=== PATIENT | male | born 1955 | race Caucasian/White ===

== ENCOUNTER 2016-12-06 00:32 | Inpatient (IN) | payer BC ==
[~2016-12-06] VITALS: Ht 182.9 cm; Wt 217.0 kg
--- NOTE | ~2016-12-06 | CR252 ---
[facility] A Service of [facility] & [facility] RADIOLOGY TEXT RESULTS PATIENT: JONATAN GILES LOCATION: [address] : [birth year] UNIT #: [id number] AGE: [address]: Neida Palacios MD SEX: M ORDER DR: [id number] [facility] [address] [facility]. [place], [place] [address] [id number] I MR#: [id number] Acc #: [id number] NAME: JONATAN GILES. : 1955 SEX: M STUDY DATE/TIME: 12/06/2016 01:49 UNIT: [facility] ROOM: [facility] STUDY DESCRIPTION: CR Tibia and Fibula 2 Views Lt Attending Physician: Arabella Mathews M.D. Ordering Physician: Bryan Bella M.D. Primary Care Physician: Raquel Kwon M.D. MEDICAL IMAGING REPORT This report is preliminary unless electronic signature is present EXAM Left tib-fib 12/06 01:49 INDICATION Leg pain after fall 2 days ago. FINDINGS AP and lateral views of the lower leg were obtained. Patient is morbidly obese. There is tricompartmental osteoarthritis in the knee. No acute fracture or malalignment is identified. IMPRESSION Osteoarthritis in the knee. No acute fracture. Dictated by... Joseph Brandt Jr., M.D. THIS IS AN ELECTRONICALLY VERIFIED REPORT Joseph Brandt Jr., M.D. at 12/07/2016 12:52 AM ZACH/emily TD: 12/06/2016 08:18 JOB #: [id number] MEDICAL IMAGING REPORT Page 1 of 1 COPY
--- NOTE | ~2016-12-06 | DS ---
Unit #: [id number] #: [id number] Patient: JONATAN GILES [id number] [address] [place], [place] [address] [id number] I MR#: [id number] NAME: JONATAN GILES. ROOM: [facility] Age: 61 Sex: M Admission Date: 12/06/2016 : 1955 Discharge Date: 12/19/2016 Attending Physician: Kamala Coon M.D. Primary Care Physician: Raquel Kwon M.D. DISCHARGE SUMMARY ADDENDUM Please note this is an addendum to a previously dictated transfer of card note done by Dr. Palacios on 12/09/2016. ADDITIONAL DISCHARGE DIAGNOSES 1. Septic shock secondary to left thigh cellulitis, now resolved. Positive organism not identified. 2. Acute kidney injury with probable underlying diabetic nephropathy, plus/minus focal segmental glomerulosclerosis. Currently maintained on hemodialysis. 3. Acute on likely chronic hypercapnic hypoxic respiratory failure, currently maintained on 10 liters per Oxymizer with BiPAP at night. 4. Nonsustained ventricular tachycardia, now resolved. 5. Diabetes mellitus type 2, insulin requiring and uncontrolled, with hemoglobin A1c of 8.6. 6. Obstructive sleep apnea. 7. Obesity/hypoventilation syndrome. 8. Anemia of chronic kidney disease. 9. Diffuse tenia infection of the skin, status post treatment. 10. Depression. CONSULTANTS Dr. Walton, cardiology. Dr. Werner, Vascular surgery. PROCEDURES PERFORMED Placement of right IJ tunnelled hemodialysis catheter. This occurred without complication. DIAGNOSTIC DATA IMAGING: Multiple follow-up chest x-rays demonstrating dense atelectasis of the right base and a small to moderate sized right pleural effusion. CLINICAL HISTORY/HOSPITAL COURSE Since last dictation, the patient fortunately has made dramatic improvement. He has been off pressor therapy since soon after last dictation and blood pressure has remained stable. He did complete a one-week course of antibiotics for the cellulitis associated with his left lower extremity. Antibiotics were subsequently discontinued. He had a persistent leukocytosis, but without fever. Over the course of the last several days his leukocytosis has begun to spontaneously resolve and is felt to be reactive in nature. On day of discharge white blood cell count is still elevated at 15.3, but is trending down quickly. No obvious other Unit #: [id number] #: [id number] Patient: JONATAN GILES signs of infection and leukocytosis can be monitored. He did also complete a one-week course of Diflucan. In regard to the patient's acute kidney injury, the patient was maintained on daily hemodialysis for approximately six days beginning on December 09. He had significant loss of fluid weight and is now on intermittent hemodialysis, being monitored by nephrology. There is a clinical suspicion the patient's significant underlying nephrotic syndrome prior to presentation that be related to his underlying poorly controlled diabetes versus an FFGF etiology. At this point he will continue hemodialysis and continue to monitor for hopefully removal from dialysis in the future. His associated rhabdomyolysis has resolved. In regard to the patient's compartment syndrome, he is being followed by orthopedics, but wounds look good. There is no further compartment syndrome and no further plans for workup. Wounds continue to be followed closely. The patient also had significant hyperglycemia, but insulin has been adjusted and sugars are now running in the high 100s to low 200s and as intake improves will need further monitoring of insulin therapy. The patient did develop nonsustained ventricular tachycardia, for which cardiology was consulted. Clinically the suspicion is this is secondary to significant underlying obstructive sleep apnea. However, the patient does have significant risk factors for underlying coronary artery disease. However, he has never had an elevated troponin, nor has he had any other indications on EKG or telemetry of ischemia. Plan is for patient to heal from current illness and perhaps when more stable he does need heart cath for further evaluation. Of course, renal function should be discussed with nephrology. The patient was also suffering from severe depression with I suspect an associated hypoactive delirium. Delirium component has resolved. He was seen by Dr. Conway and placed on Zoloft and mood has been much improved subsequently. Patient underwent tunnelled hemodialysis catheter placement yesterday and is now clinically stable for transfer to [place] when a bed is available. DISCHARGE CONDITION Stable. DISCHARGE STATUS Plan to transfer to ICU at [place] when a bed is available. DISCHARGE MEDICATIONS 1. Oxygen at 10 liters per Oxymizer, to be titrated for sats greater than or equal to 90%. 2. Combivent nebulizer treatments, 3 ml q.4 h. p.r.n. shortness of breath. 3. Heparin 5000 units subcutaneously t.i.d. at 10 a.m., 6 p.m. and 2 a.m. 4. Zoloft 25 mg at bedtime. 5. Dulera 100/5 mcg 2 puffs b.i.d. 6. Metoprolol tartrate 25 mg b.i.d. 7. Procrit 10,000 units subcutaneously with hemodialysis per renal. 8. Novolin R 13 units subcutaneously t.i.d. with meals, with associated high-dose sliding scale. Unit #: [id number] #: [id number] Patient: JONATAN GILES 9. Levemir 48 units subcutaneously b.i.d. 10. Aspirin 81 mg p.o. daily. 11. Percocet 10/325 mg 1-2 tablets p.o. q.6 h. p.r.n. pain. 12. Dilaudid injections 0.5-1 mg IV q.3 h. p.r.n. pain. 13. Renvela 800 mg 2 tablets p.o. t.i.d. with meals. 14. Protonix 40 mg p.o. daily. DISCHARGE INSTRUCTIONS 1. The patient is on a heart healthy, constant carb diet. 2. He will continue Accu-Cheks a.c. and h.s. 3. He can increase his activity as tolerated under the care of physical therapy. 4. In regard to fasciotomy wounds, they are being painted with Betadine and changed with transparent dressing just once daily. There is a crusting technique to wound under the pannis with Adaptic powder and skin perp wipes q.72 h. and p.r.n. and covered with Mepilex. The patient also has a wound on the right posterior calf that is being cleaned with sock wound cleanser daily. 5. He is also wearing BiPAP at night. FOLLOWUP 1. The patient will be followed by nephrology at [place]. 2. Will need pulmonology evaluation as well. 3. Further followup pending progression at [place]. Time spent on discharge today 43 minutes. Dictated by... Kamala Coon M.D. Calos TD: 12/19/2016 10:17 JOB #: [id number] DISCHARGE SUMMARY Page 1 of 1 X Kamala Coon MD DISCHARGE SUMMARY
--- NOTE | ~2016-12-06 | TOC ---
Unit #: [id number] #: [id number] Patient: JONATAN GILES [id number] [address] [address] [id number] I MR#: [id number] NAME: JONATAN GILES ROOM: [facility] Age: 61 Sex: M Admission Date: 12/06/2016 : 1955 Attending Physician: Neida Palacios M.D. Primary Care Physician: Raquel Kwon M.D. TRANSFER OF CARE SUMMARY DISCHARGE DIAGNOSES 1. Septic shock, on Levophed. 2. Left leg and thigh compartment syndrome. 3. Sepsis. 4. Acute kidney injury and oliguria. Patient is on continuous renal replacement therapy, trying for hemodialysis. 5. Acute rhabdomyolysis. 6. Acute hypercapnic, hypoxic respiratory failure postoperatively, currently on ventilation. 7. Hypovolemic shock, received fluids. 8. Atrial fibrillation with rapid ventricular rate. 9. Chronic obstructive pulmonary disease. 10. Obstructive sleep apnea. 11. History of recurrent cellulitis of hip, back and buttocks. 12. History of Lap-Band placement. 13. Diabetes mellitus type 2, insulin dependent. Currently severe hypoglycemia, on D10. 14. Hyperlipidemia. 15. Hypertension history, currently hypotension, on Levophed. 16. Hyponatremia. 17. Hyperkalemia. 18. Hypocalcemia. 19. Severe protein malnutrition. 20. Lactic acidosis. 21. Morbid obesity. Body mass index of 67. CONSULTATIONS 1. Dr. Castano. 2. Dr. Cueva. PROCEDURES The patient had left lower leg four compartment release and left thigh anterior and posterior compartment release. DIAGNOSTIC TESTING CURRENT LAB DATA: Glucose 151 on D10. CK 6,180. Phosphorous 4, magnesium 2.2, sodium 133, potassium 5.5, creatinine 2.8, AST 264, ALT 163, albumin 1.6. WBC 11.7, hemoglobin 10.6, platelets 136. ABG - pH 7.35, carbon dioxide 51, oxygen 75. Procalcitonin is 152. HOSPITALIZATION COURSE A 61 year old admitted because of leg cellulitis. Septic shock with severe sepsis. Patient was seen by infectious disease. Unit #: [id number] #: [id number] Patient: JONATAN GILES The patient was started on broad-spectrum antibiotics. Currently the patient is on Zyvox and Meropenem. The patient is in ICU. The patient did have compartment release for his leg and thigh. Blood cultures are negative so far. Continue antibiotics as per infectious disease. Acute postop hypercapnic, hypoxic respiratory failure. Currently ventilation. Continue with vent management as per pulmonary. Acute kidney injury with oliguria with acute rhabdomyolysis. The patient received CRRT. Currently on CRRT. We will start hemodialysis if the patient tolerates. Severe hypotension. Likely from septic shock and also severe hypovolemic shock. The patient received fluids initially postoperatively. Currently is on Levophed. Atrial fibrillation. Currently rate controlled. Monitor closely. Severe electrolyte imbalance, treated by nephrology. Morbid obesity with severe protein malnutrition. Subscription Crew Leader to see. Critically ill patient. Monitor closely in the ICU. Dictated by... Huber Zhang/elida TD: 12/09/2016 14:47 JOB #: [id number] TRANSFER OF CARE SUMMARY Page 1 of 1 X Neida Palacios MD TRANSFER OF CARE SUMMARY
--- NOTE | ~2016-12-06 | EKG ---
PATIENT: JONATAN GILES UNIT #: [id number] Ventricular Rate: 76 BPM Atrial Rate: 76 BPM P-R Interval: 134 ms QRS Duration: 102 ms Q-T Interval: 348 ms QTC Calculation(Bezet): 391 ms P Huron: 45 degrees Calculated R Huron: 56 degrees Calculated T Huron: -135 degrees Diagnosis Line: Normal sinus rhythm Diagnosis Line: Nonspecific T wave abnormality Diagnosis Line: Abnormal ECG Diagnosis Line: When compared with ECG of 13-DEC-2016 17:01, Diagnosis Line: No significant change was found Diagnosis Line: Confirmed by FLORENCIA HERNÁNDEZ MD ([id number]) on Diagnosis Line: 12/17/2016 4:48:13 PM INTERPRETING MD: ELIZABETH
--- NOTE | ~2016-12-06 | CR72 ---
[facility] A Service of [facility] & [facility] RADIOLOGY TEXT RESULTS PATIENT: JONATAN GILES LOCATION: [address] : [birth year] UNIT #: [id number] AGE: [address]: Neida Palacios MD SEX: M ORDER DR: [id number] [facility] [address] [facility]. [place], [place] [address] [id number] I MR#: [id number] Acc #: [id number] NAME: JONATAN GILES. : 1955 SEX: M STUDY DATE/TIME: 12/06/2016 19:04 UNIT: [facility] ROOM: [facility] STUDY DESCRIPTION: CR Chest Single View Portable Attending Physician: Neida Palacios M.D. Ordering Physician: Neida Palacios M.D. Primary Care Physician: Raquel Kwon M.D. MEDICAL IMAGING REPORT This report is preliminary unless electronic signature is present EXAM Portable chest. HISTORY Shiley catheter placement today. Shortness of air. FINDINGS Right IJ dual-lumen catheter positioned with its tip at the junction of the SVC and right atrium. No pneumothorax. Dense right basilar consolidation or atelectasis is similar to earlier today and there is a persistent small right pleural effusion. New or increased mild patchy infiltrate or atelectasis in the left base. ETT tip is approximately 8 cm above the jovanny. Dictated by... Dawson Meadows M.D. THIS IS AN ELECTRONICALLY VERIFIED REPORT Dawson Meadows M.D. at 12/07/2016 4:08 PM DFL/gz TD: 12/07/2016 08:31 JOB #: [id number] MEDICAL IMAGING REPORT Page 1 of 1 COPY
--- NOTE | ~2016-12-06 | HP ---
Unit #: [id number] #: [id number] Patient: JONATAN GILES [id number] [address] [place], [place] [address] [id number] I MR#: [id number] NAME: JONATAN GILES. ROOM: [facility] Age: 61 Sex: M Admission Date: 12/06/2016 : 1955 Attending Physician: Neida Palacios M.D. Primary Care Physician: Raquel Kwon M.D. HISTORY AND PHYSICAL CHIEF COMPLAINT Rhabdomyolysis, left leg cellulitis, acute kidney injury. HISTORY This 61-year-old male with hypertension, AODM, obstructive sleep apnea, COPD, morbid obesity, is admitted for rhabdomyolysis. Around 3 p.m. yesterday, the patient was unable to get off the commode for about five hours. He ended up falling to the floor, and EMS was called. He was brought to this emergency department at or about 12:30 this morning where he was quite dyspneic. On examination, he has significant erythema and swelling of the left lower extremity with quite a bit of pain in the left leg. Labs are notable for rhabdomyolysis and acute kidney injury. The patient's O2 sats were on the lower side requiring 4 L of oxygen. He denies chest pain with the above but does admit to feeling more short of breath. D-dimer was also elevated. In the ER, he was given Dilaudid, 125 mg of Solu-Medrol, aspirin, 2 L of saline, 200 mg of Lovenox, vancomycin. He continues to have quite a bit of left leg pain. PAST MEDICAL HISTORY 1. Admission 05/2016 for left hip cellulitis requiring Zyvox. 2. Essential hypertension. 3. Hyperlipidemia. 4. Paroxysmal atrial fibrillation. 5. Insulin dependent diabetes mellitus x15 years. 6. Obstructive sleep apnea. 7. COPD. 8. BPH. 9. Recurrent cellulitis of the hips, back and buttocks. 10. Lap band placement. 11. Chest tube placement. ALLERGIES Penicillin. MEDICATIONS Home medications from the best I can determine include: 1. ProAir q.4 hours as needed. 2. Metformin 500 mg b.i.d. 3. Dulera 100/5 mcg, two puffs b.i.d. 4. Norvasc 5 mg daily. 5. Ditropan XL 15 mg daily. 6. Lipitor 40 mg daily. 7. Hydralazine 25 mg t.i.d. 8. Lisinopril 20 mg b.i.d. Unit #: [id number] #: [id number] Patient: JONATAN GILES 9. Apidra 35 units subcu t.i.d. with meals. 10. Levemir or Lantus 45 units subcu b.i.d. 11. Singulair 10 mg daily. 12. Aspirin 81 mg daily. 13. Daliresp 500 mg daily. FAMILY HISTORY Negative for CAD. SOCIAL HISTORY The patient works at [employer]. He stopped smoking about three to four years ago. Does not drink alcohol. REVIEW OF SYSTEMS Notable for left leg pain, hypertension, hyperlipidemia, atrial fibrillation, diabetes, obstructive sleep apnea, COPD, BPH, above mentioned surgeries, quite a bit of left leg pain, shortness of breath. All other systems were reviewed and are otherwise negative. PHYSICAL EXAMINATION GENERAL: Pleasant, uncomfortable appearing 61-year-old morbidly obese male who is dyspneic. VITAL SIGNS: Temperature 97.9, pulse 120, respirations 27, blood pressure 121/98. O2 saturation currently is about 94% on 4 L of oxygen. HEENT: Eyes PERRLA. Extraocular muscles are intact. Pharynx is benign. NECK: Supple without adenopathy or thyromegaly. CHEST: Clear. CARDIAC: Tachy S1 and S2 without murmur. ABDOMEN: Bowel sounds are present. No hepatosplenomegaly, tenderness or masses. EXTREMITIES: Notable for chronic venous stasis of the lower extremities. However, left leg is much more red, hot and swollen distally than the right leg. There is also bruising left lateral upper thigh. Pedal pulses are present. No ulcers on the feet. NEUROLOGIC EXAM: The patient is awake, alert, oriented. His cranial nerves are intact. He has equal strength throughout. DIAGNOSTIC STUDIES LABORATORY: Admission labs - hematocrit is 49. Normal white count and platelet count. SMA-12 - glucose is 209, BUN 27, creatinine 2.9, up from a BUN of 19 and creatinine of 1.2 in May. Potassium is 5.2, calcium 8.2, albumin is 1.9. CPK is 25,000, troponin 0.16, BNP is 171. Initial lactic acid 4.1. ABG - pH 7.37, pCO2 34, pO2 93, O2 saturation 96% on 4 L of oxygen. IMAGING: X-ray of the LS spine negative. Chest x-ray - stable cardiomegaly. Mild vascular congestion. X-rays of the femur - DJD but limited study. X-rays of the tib/fib - DJD of the knee. CARDIOVASCULAR: EKG - I believe this is sinus tachycardia, rate 117, Unit #: [id number] #: [id number] Patient: JONATAN GILES nonspecific ST wave flattening. ASSESSMENT 1. Rhabdomyolysis. Patient was unable to get off the commode for about five hours and then fell. 2. Left leg cellulitis. Rule out DVT, rule out compartment syndrome. 3. AODM. 4. COPD with increasing shortness of breath. 5. Paroxysmal atrial fibrillation. I believe patient currently is in a sinus tachycardia. 6. BPH. 7. Obstructive sleep apnea. 8. COPD with increasing shortness of breath. 9. Sepsis. 10. Penicillin allergy. 11. Morbid obesity. PLANS 1. Zyvox and meropenem. 2. Orthopedic surgeon to check left leg. 3. Aggressive IV fluids with bicarb and ask nephrology to follow. Will ask for a urinalysis. 4. Pulmonary consultation. Patient sees Taylor Buenrostro, nurse practitioner. 5. Repeat all labs in a few hours including lactic acid levels and repeat CPK along with cardiac enzymes. 6. The patient received 200 mg of Lovenox in the ER. If he needs further anticoagulation, will start a heparin drip in 24 hours. 7. Venous Dopplers of the legs to rule out DVT. 8. The patient received Solu-Medrol but I will hold further Solu-Medrol at this point. Critical care time spent in evaluating this patient was 40 minutes. Dictated by Huber Patricio/wilmer TD: 12/06/2016 05:42 JOB #: [id number] HISTORY AND PHYSICAL Page 1 of 1 X Arabella Mathews MD X HISTORY AND PHYSICAL
--- NOTE | ~2016-12-06 | CR181 ---
[facility] A Service of [facility] & [facility] RADIOLOGY TEXT RESULTS PATIENT: JONATAN GILES LOCATION: [address] : [birth year] UNIT #: [id number] AGE: [address]: Neida Palacios MD SEX: M ORDER DR: [id number] [facility] [address] [facility]. [place], [place] [address] [id number] I MR#: [id number] Acc #: [id number] NAME: JONATAN GILES. : 1955 SEX: M STUDY DATE/TIME: 12/06/2016 02:49 UNIT: [facility] ROOM: [facility] STUDY DESCRIPTION: CR Lumbar Spine 2 or 3 Views Attending Physician: Neida Palacios M.D. Ordering Physician: Bryan Bella M.D. Primary Care Physician: Raquel Kwon M.D. MEDICAL IMAGING REPORT This report is preliminary unless electronic signature is present EXAM Lumbar spine 12/06 at 02:49 INDICATION Low back pain after a fall 2 days ago. Left leg pain. FINDINGS Three views of the lumbar spine were obtained. The exam is markedly degraded due to the patient's morbid obesity. No gross compression fractures are seen. Alignment is normal. There is multilevel degenerative disc disease. IMPRESSION Exam degraded by patient obesity. No definite compression fracture is seen and there is no malalignment. Dictated by... Joseph Brandt Jr., M.D. THIS IS AN ELECTRONICALLY VERIFIED REPORT Joseph Brandt Jr., M.D. at 12/07/2016 12:52 AM ZACH/emily TD: 12/06/2016 08:54 JOB #: [id number] MEDICAL IMAGING REPORT Page 1 of 1 COPY
--- NOTE | ~2016-12-06 | BMI ---
[facility] Nutrition Therapy DATE: 12/06/16 Patient: JONATAN GILES Physician: ADENIKE Address: [address] Room/Bed: [address], Zip: [place] [address] Admit Date: 12/06/16 Date of : [birth year] Height: 6 0 Weight: HIGH BMI NOTE: DX: 61 y/o male admitted with SOA, down x 4 hours after toilet broke underneath him Patient was discussed during ICU rounds ANTHROPOMETRICS: HT: 72", Wt: 226.7 kg, BMI: 67 (stage III obese) DIET: NPO for possible surgery INTERVENTION: Restricted diet once appropriate, meds/fluids per MD RECOMMENDATIONS: 1. Once medically feasible advance oral diet to healthy heart/60g carb as tolerated due to PMH and to promote a gradual weight loss towards a healthy BMI range. 2. Wound care prn. 3. If unable to extubated patient within 48 hours of surgery please consult RD for enteral nutrition recommendations. Respectfully, Che Macario RD, LD Food and Nutritional Services [facility] cc: client file
--- NOTE | ~2016-12-06 | CR20 ---
[facility] A Service of [facility] & [facility] RADIOLOGY TEXT RESULTS PATIENT: JONATAN GILES LOCATION: [address] : [birth year] UNIT #: [id number] AGE: [address]: Neida Palacios MD SEX: M ORDER DR: [id number] [place] [address] [facility]. [place], [place] [address] [id number] I MR#: [id number] Acc #: [id number] NAME: JONATAN GILES. : 1955 SEX: M STUDY DATE/TIME: 12/07/2016 9:34 UNIT: [facility] ROOM: [facility] STUDY DESCRIPTION: CR Ankle Min 3 Views Lt Attending Physician: Neida Palacios M.D. Ordering Physician: Neida Palacios M.D. Primary Care Physician: Raquel wKon M.D. MEDICAL IMAGING REPORT This report is preliminary unless electronic signature is present EXAM Left ankle, 3 views. HISTORY Foot and ankle pain for 2 days. No injury. FINDINGS Three views left ankle demonstrate satisfactory ankle alignment. No fracture or joint space narrowing. Soft tissue swelling about the ankle. Normal mineralization. IMPRESSION 1. Satisfactory ankle alignment. No acute findings. 2. Soft tissue swelling about the ankle. Dictated by... Dawson Meadows M.D. THIS IS AN ELECTRONICALLY VERIFIED REPORT Dawson Meadows M.D. at 12/07/2016 10:31 PM KAYLAN/rene TD: 12/07/2016 20:20 JOB #: [id number] MEDICAL IMAGING REPORT Page 1 of 1 COPY
--- NOTE | ~2016-12-06 | CO ---
Unit #: [id number] #: [id number] Patient: JONATAN GILES [id number] [place], [place] [address] [id number] I MR#: [id number] NAME: JONATAN GILES. ROOM: [facility] Age: 61 Sex: M Admission Date: 12/06/2016 : 1955 Attending Physician: Kamala Coon M.D. Primary Care Physician: Raquel Kwon M.D. Consultation Date: 12/13/2016 CONSULTATION REPORT REASON FOR CONSULTATION Ventricular tachycardia. HISTORY OF PRESENT ILLNESS This is a 61-year-old white male who was admitted with left lower extremity cellulitis and rhabdomyolysis. The patient was unable to get off the commode at home and fell to the floor where he apparently laid for a period of time. He was found to have left lower extremity compartment syndrome and underwent release. He had severe sepsis, respiratory failure, and acute kidney injury. He was subsequently intubated. He was on vasoactive pressors for hypotension. He was eventually weaned off the ventilator and off pressors. His blood pressure is currently stable. Because of acute kidney injury, he was started on hemodialysis. There was elevation of troponin that peaked at 0.21 but no acute electrocardiogram changes. During the course of his stay, the patient had an 18-beat run of (1) nonsustained ventricular tachycardia. His potassium this a.m. was 5.8 prior to hemodialysis. The patient was unaware of palpitations and reported no episodes of chest pain. He has no current shortness of breath. The patient was seen by our group in May of this year for a possible arrhythmia. He was noted to have frequent premature atrial complexes and questionable atrial fibrillation. He was to have an outpatient 24-hour Holter monitor but was not done. PAST MEDICAL HISTORY 1. A 2D echocardiogram, May 31, 2016, shows an ejection fraction equal to 50%. It was difficult study. Aortic and tricuspid valves were not well visualized. 2. Atrial arrhythmia. 3. Hypertension. 4. Hyperlipidemia. 5. Diabetes mellitus type 2. 6. Obstructive sleep apnea. 7. Chronic kidney disease stage 3. 8. COPD. 9. Morbid obesity. 10. Former smoker. PAST SURGICAL HISTORY 1. Recent left lower extremity compartment syndrome release. 2. Lap Band surgery. SOCIAL HISTORY The patient lives with his brother and uncle. Quit smoking approximately four years ago. There is no illicit drug or alcohol use. He has a Unit #: [id number] #: [id number] Patient: JONATAN GILES sedentary lifestyle and works for [employer]. FAMILY HISTORY Negative for coronary artery disease. ALLERGIES Penicillin. HOME MEDICATIONS 1. Lantus 70 units subcutaneous b.i.d. 2. Singulair 10 mg daily. 3. Aspirin 81 mg daily. 4. Norvasc 5 mg daily. 5. Ditropan 15 mg daily. 6. Lipitor 40 mg daily. 7. Hydralazine 25 mg t.i.d. 8. Lisinopril 20 mg b.i.d. 9. Apidra 35 units subcutaneous daily. 10. ProAir HFA two puffs q.4 hours. 11. Zyvox 600 mg b.i.d. 12. Metformin 1000 mg b.i.d. 13. Diflucan 100 mg daily. 14. Nilstat 10 mL t.i.d. 15. Dulera two puffs b.i.d. 16. Daliresp 500 mcg daily. REVIEW OF SYSTEMS Negative for fever or chills. Has no chest pain. Unaware of palpitations. Denies paroxysmal nocturnal dyspnea or orthopnea. NO syncope or near syncope. RESPIRATORY: Positive for dyspnea. No cough or hemoptysis. GASTROINTESTINAL: No abdominal pain, nausea, vomiting. EXTREMITIES: Positive for lower extremity pain with swelling and redness. PHYSICAL EXAMINATION VITAL SIGNS: Blood pressure 129/66, heart rate 89, temperature 97.4, BMI 67. GENERAL: This is a morbidly obese 61-year-old pleasant white male who is in no acute distress. NEUROLOGIC: He is awake, alert, and oriented. NECK: Trachea is midline. No thyromegaly or lymphadenopathy. No jugular venous distention. HEART: S1, S2 heart sounds are normal. No murmurs, rubs, or clicks. Regular rate and rhythm. LUNGS: Diminished both lungs without rales, rhonchi, wheeze. ABDOMEN: Obese, soft with bowel sounds present. EXTREMITIES: With left lower extremity wrapped. Right lower extremity with trace edema. SKIN: Pale and dry. DIAGNOSTIC STUDIES LABORATORY: Hemoglobin 10.9, hematocrit 32.9, platelet count 241,000, white count 27.9. Sodium 134, potassium 5.8, BUN 51, creatinine 4.3, glucose 338. Magnesium 2.5. AST 85, ALT 155. IMAGING: Chest x-ray shows cardiomegaly with questionable mild vascular congestion. There is a right effusion with compressed atelectasis. Unit #: [id number] #: [id number] Patient: JONATAN GILES CARDIOVASCULAR: Electrocardiogram shows normal sinus rhythm with rate of 89 beats per minute with no acute ischemic changes. IMPRESSION 1. Rhabdomyolysis. 2. Acute kidney injury requiring hemodialysis, questionable nephrotic syndrome. 3. Nonsustained ventricular tachycardia of 18 beats. 4. Questionable paroxysmal atrial fibrillation. 5. Hypotension, resolved. 6. Compartment syndrome, status post release. 7. Elevated troponin peak at 0.21, nondiagnostic for an acute myocardial infarction. 8. Morbid obesity. 9. Hyperkalemia. 10. Elevated liver function tests. PLAN 1. Cardiology was consulted for ventricular tachycardia: The patient was unaware of palpitations. Electrocardiogram is normal. He had normal left ventricular systolic function on previous echocardiogram in May 2016. Will start the patient on beta david for heart rate control. 2. Potassium was elevated prior to hemodialysis today. Will await repeat laboratory values. 3. Elevated liver function tests is probably related to hepatic congestion and not intrinsic hepatic disease, that is anoxic insult. Will avoid amiodarone for now. 4. Elevated troponin is most likely due to chronic kidney disease and supply/demand mismatch. Will continue to trend. 5. Obtain TSH and evaluate. 6. Will need further evaluation for possible ischemic heart disease. 7. Will follow the patient with you. Thank you for allowing us to assist in this patient's care. Dictated by... Fco Jarrell A.P.R.N. for Huber Fuller/indiana TD: 12/15/2016 16:10 JOB #: [id number] CONSULTATION REPORT Page 1 of 1 X Fco Jarrell APRN CONSULTATION REPORT
--- NOTE | ~2016-12-06 | CR71 ---
[facility]. [facility] A Service of [facility] & [facility] RADIOLOGY TEXT RESULTS PATIENT: JONATAN GILES LOCATION: [address] : [birth year] UNIT #: [id number] AGE: [address]: Neida Palacios MD SEX: M ORDER DR: [id number] [facility] [address] [facility]. [place], [place] [address] [id number] I MR#: [id number] Acc #: [id number] NAME: JONATAN GILES : 1955 SEX: M STUDY DATE/TIME: 12/09/2016 4:19 UNIT: [facility] ROOM: [facility] STUDY DESCRIPTION: CR Chest Single View Attending Physician: Neida Palacios M.D. Ordering Physician: Madeline Mills M.D. Primary Care Physician: Raquel Kwon M.D. MEDICAL IMAGING REPORT This report is preliminary unless electronic signature is present EXAM Portable chest, 12/09 COMPARISON 12/08 HISTORY Shortness of air. Rhabdomyolysis. Left leg cellulitis for 3 landeros. Status post compartment release of left calf. FINDINGS Today's portable view of the chest again shows marked cardiomegaly with right base atelectasis. There has been no change. The central venous catheter has its tip in the superior vena cava. The endotracheal tube is in good position. Dictated by... Navdeep Guillaume M.D. THIS IS AN ELECTRONICALLY VERIFIED REPORT Navdeep Guillaume M.D. at 12/09/2016 12:12 PM Mati TD: 12/09/2016 10:25 JOB #: [id number] MEDICAL IMAGING REPORT Page 1 of 1 COPY
--- NOTE | ~2016-12-06 | OR ---
Unit #: [id number] #: [id number] Patient: JONATAN GILES [id number] [address] [place], [place] [address] [id number] I MR#: [id number] NAME: JONATAN GILES. ROOM: [facility] Date of Procedure: 12/06/2016 Admission Date: 12/06/2016 Surgeon: Ale Castano M.D. : 1955 Attending Physician: Neida Palacios M.D. Primary Care Physician: Raquel Kwon M.D. OPERATIVE REPORT PREOPERATIVE DIAGNOSES 1. Left lower leg compartment syndrome. 2. Left thigh compartment syndrome. POSTOPERATIVE DIAGNOSES 1. Left lower leg compartment syndrome. 2. Left thigh compartment syndrome. PROCEDURES PERFORMED 1. Left lower leg four-compartment release (14421). 2. Left thigh anterior and posterior compartment release (24055). ASSISTANTS Brandie and Celia. ANESTHESIA General. INDICATIONS FOR SURGERY This 61-year-old morbidly obese male fell this morning at home and was trapped on the floor for about 4 hours. He is admitted with swelling and pain in the left leg. He complains of inability to move his toes or move his ankle on the left foot. He has significant swelling of the left calf and left thigh. He has significant tenderness on palpation of the left calf and left thigh. Pulses are intact. The patient has an elevated CPK of 24,000 and has an elevated creatinine. He is thought to be in rhabdomyolysis secondary to possible compartment syndrome. He will therefore undergo compartment release of his swollen left calf and left thigh. DESCRIPTION OF PROCEDURE The patient was taken to the operating room and placed in supine position and general endotracheal anesthesia was induced. The left leg was then prepped and draped in the usual sterile fashion. A 15 cm lateral longitudinal incision was made over the calf. Subcutaneous tissue was carefully divided. There was a copious amount of fluid (lymph fluid) in the subcutaneous tissue. The intermuscular septum was identified. The subcutaneous tissue was undermined and the anterior compartment was fully released from proximal to distal with Metzenbaum scissors. In a similar fashion, the lateral compartment was identified and released along the entire length of the lower extremity. Care was taken to avoid injury to the superficial peroneal nerve. Unit #: [id number] #: [id number] Patient: JONATAN GILES A 10 cm medial longitudinal incision was then made over the mid tibia and calf. The subcutaneous tissue was carefully divided. The deep muscle fascia was opened just posterior to the border of the tibia and deep muscle fascia was opened from proximal to distal. The superficial compartment was also opened with the same fasciotomy. A Castillo elevator was then used to release the soleus bridge from the posterior aspect of the tibia. It should be noted that the muscles in all four compartments of the lower leg appeared to be viable, pink, and contractile. A 15 cm lateral longitudinal incision was then made over the thigh. Subcutaneous tissue was divided. The iliotibial band was opened and there appeared to be swelling of the quadriceps muscle. The iliotibial band was released proximally and distally and the quadriceps muscle appeared to be viable. The deep muscle fascia in the posterior compartment of the thigh was then released through the same incision from proximal to distal and again the hamstring muscles appeared to be viable. All wounds were irrigated. Because the skin could easily be closed, we elected to proceed with closure of the skin with 2-0 nylon using multiple [id number] interrupted sutures. Xeroform gauze, dressing, sponges, Webril, and Raulito wraps were applied. The patient was then transported to the recovery room in stable condition. ESTIMATED BLOOD LOSS 50 mL. COMPLICATIONS None. SPECIMENS None. TOURNIQUET TIME Zero. Dictated byHuber Cotton/live TD: 12/06/2016 19:15 JOB #: [id number] OPERATIVE REPORT Page 1 of 1 X Roman Castano MD X PROCEDURE OPERATIVE NOTE
--- NOTE | ~2016-12-06 | CO ---
Unit #: [id number] #: [id number] Patient: JONATAN GILES [id number] [address] [address] [id number] I MR#: [id number] NAME: JONATAN GILES. ROOM: [facility] Age: 61 Sex: M Admission Date: 12/06/2016 : 1955 Attending Physician: Neida Palacios M.D. Primary Care Physician: Raquel Kwon M.D. Consultation Date: 12/06/2016 CONSULTATION REPORT CHIEF COMPLAINT Left leg pain and swelling. HISTORY OF PRESENT ILLNESS The patient is a 61-year-old morbidly obese male who fell off a toilet this morning and got trapped on the floor, laying on his chest. He is not sure what position his left leg was positioned. However, he now has significant left leg swelling and pain with numbness and paralysis. The patient is admitted to the intensive care unit with an elevated CPK of 24,000 and suspected rhabdomyolysis. He has an elevated creatinine of 2.9. His normal baseline is 1.3. Orthopedic consultation is requested to rule out compartment syndrome. PAST MEDICAL HISTORY 1. Insulin dependent diabetes. 2. Morbid obesity. 3. Hypertension. 4. Hyperlipidemia. 5. Obstructive sleep apnea. 6. Chronic obstructive pulmonary disease. 7. Benign prostatic hypertrophy. PAST SURGICAL HISTORY 1. Lap band surgery 2006. 2. Chest tube placement. SOCIAL HISTORY The patient is a former smoker. He denies alcohol or illicit drug use. HOME MEDICATIONS 1. Singulair. 2. Aspirin. 3. Daliresp. 4. Ditropan. 5. Lisinopril. 6. Hydralazine. 7. Norvasc. 8. Lipitor. 9. Metformin. 10. ProAir. 11. Insulin. 12. Apidra. 13. Dulera. Unit #: [id number] #: [id number] Patient: JONATAN GILES REVIEW OF SYSTEMS Remarkable for left leg pain and numbness. PHYSICAL EXAMINATION GENERAL: In general, this is a morbidly obese male in excess of 500 pounds. He is alert, oriented and cooperative. He is unable to move his left leg. He is unable to dorsiflex or plantar flex his left ankle. He is unable to dorsiflex or plantar flex his toes on the left foot. Sensation is decreased to light touch on the dorsal aspect of his left foot and the plantar aspect of this foot. He does have intact sensation on his calf anteriorly and posteriorly, as well as on his thigh. He has point tenderness of the left calf anteriorly and posteriorly as well as in the thigh anteriorly and posteriorly. The patient has venous stasis changes of the skin of both calves. Dorsalis pedis and posterior tibial pulses are present with Doppler. DIAGNOSTIC STUDIES IMAGING: AP and lateral radiographs of his left femur and left tibia are normal. AP and lateral lumbar spine show no evidence of fracture. He does have evidence of medial compartment knee arthritis. LABORATORY: Hemoglobin 15.7, hematocrit 49, white blood cell count 6.5 with 88% polys. INR 1.2. Lactate 4.1, CPK 24,682. Chem. 7 shows an elevated potassium of 5.2 with a BUN of 27 and creatinine of 2.9. ASSESSMENT 1. Left thigh and calf compartment syndrome. 2. Morbid obesity. 3. Rhabdomyolysis. PLAN The patient requires emergent left calf and left thigh fasciotomies. This procedure was described to the patient, along with the risks of bleeding, infection, nerve damage, permanent paralysis and numbness, need for further surgery for either closure of the skin or skin grafting. The patient understands the above risks and agrees to proceed with the treatment plan. Will proceed as soon as the patient is cleared for surgery. Dictated by..Huber Roque/natalie TD: 12/06/2016 10:33 JOB #: [id number] CC: Ale Castano M.D. Unit #: [id number] #: [id number] Patient: JONATAN GILES CONSULTATION REPORT Page 1 of 1 X Roman Castano MD X CONSULTATION REPORT
--- NOTE | ~2016-12-06 | CO ---
Unit #: [id number] #: [id number] Patient: ANDREW GILES [id number] [place] [address] [facility]. [place], [place] [address] [id number] I MR#: [id number] NAME: ANDREW GILES. ROOM: [facility] Age: 61 Sex: M Admission Date: 12/06/2016 : 1955 Attending Physician: Kamala Coon M.D. Primary Care Physician: Raquel Kwon M.D. Consultation Date: 12/19/2016 CONSULTATION REPORT REASON FOR CONSULTATION Followup. DISCUSSION Mr. Andrew Giles is a 61-year-old white male, seen in CCU-3, bed 24 on 12/19/2016 at [facility]. The patient was pleasant, cooperative, morbidly obese, dressed casually in hospital attire. The patient reports mood is better. The patient is tolerating medication fairly well and physically feeling much better. The patient's vital signs; temperature 98.4, pulse 69, respirations 16, blood pressure 142/68, and oxygen saturation 99%. The patient reported that he had a surgery this morning, created fistula for the patient to have for dialysis. The patient denied any other complaints. Denied any thoughts of harming self or others. REVIEW OF SYSTEMS Complete review of systems unremarkable. MENTAL STATUS EXAMINATION General appearance, the patient dressed casually. Attention span and concentration, fair. Oriented in time, place, and person. Mood and affect; sad and dysphoric, but able to smile. Thought process, coherent. Thought content, denied any thoughts of harming self or others or any hallucination. Recent and remote memory, fair. Language, intact. Fund of knowledge, fair. Insight and judgment, fair to slightly impaired. DIAGNOSIS Major depressive disorder, recurrent, severe, F33.2. ASSESSMENT/PLAN 1. Supportive psychotherapy and psychoeducation provided to the patient. 2. Educated about benefits and side effects of medication and course and prognosis of illness. 3. Advised to increase Zoloft to 50 mg daily. If needed, consider further adjustment of medication. Please feel free to call if any questions, telephone #[phone]. Dictated by... Bony Conway M.D. ISAK/live SUAREZ: 12/20/2016 18:24 Unit #: [id number] #: [id number] Patient: ANDREW GILES TD: 12/20/2016 19:36 JOB #: [id number] CONSULTATION REPORT Page 1 of 1 X Bony Conway MD X CONSULTATION REPORT
--- NOTE | ~2016-12-06 | CR72 ---
[facility] A Service of [facility] & [facility] RADIOLOGY TEXT RESULTS PATIENT: JONATAN GILES LOCATION: [address] : [birth year] UNIT #: [id number] AGE: [address]: Kamala Coon MD SEX: M ORDER DR: [id number] [facility] [address] [place], [place] [address] [id number] I MR#: [id number] #: [id number] NAME: JONATAN GILES. : 1955 SEX: M STUDY DATE/TIME: 12/18/2016 4:22 UNIT: [facility] ROOM: [facility] STUDY DESCRIPTION: CR Chest Single View Portable Attending Physician: Kamala Coon M.D. Ordering Physician: Madeline Mills M.D. Primary Care Physician: Raquel Kwon M.D. MEDICAL IMAGING REPORT This report is preliminary unless electronic signature is present EXAM Portable chest HISTORY Shortness of air for 12 days. FINDINGS Small to moderate-sized right pleural effusion has decreased since 12/14/2016. Consolidation or atelectasis in the right base persists. Cardiac and mediastinal contours are essentially stable with mild cardiac enlargement. Right IJ dual-lumen catheter extends to the junction of the SVC and right atrium. Feeding tube has been removed. Mild linear atelectasis or scarring in the left midlung and left base. Dictated by... Dawson Meadows M.D. THIS IS AN ELECTRONICALLY VERIFIED REPORT Dawson Meadows M.D. at 12/19/2016 4:19 AM KAYLAN/paula TD: 12/18/2016 09:20 JOB #: [id number] MEDICAL IMAGING REPORT Page 1 of 1 COPY
--- NOTE | ~2016-12-06 | A ---
[facility] Nutrition Therapy DATE: 12/07/16 Patient: JONATAN GILES Physician: ADENIKE Address: [address] Room/Bed: [address], Zip: [place] [address] Admit Date: 12/06/16 Date of : [birth year] Height: 6 0 Weight: 569 258.3 NUTRITIONAL ASSESSMENT: REASON: NPO, intubated in ICU, high BMI documentation Admitting dx: 61 y/o male admitted with SOA s/p fall, now in rhabdo + BOWEN PMH: IDDM x 15 years, HTN, HLD, HEBER, COPD, BPH, recurrent cellulitis, lap band, morbid obesity Anthropometrics: Ht: 72", Wt: 226.7 kg, BMI: 67 (stage III obese), IBW: 80.9 kg Labs: Na 134, K+ WNL (elevated on 12/06), glucose 249, POC 224-268, A1C 6.5 (05/31/16), BUN 30, creat 3.5, Phos 6.5, GFR 17.8 Meds: Bumex, levemir, high SSI Drips: levophed, na bicarbonate, fentanyl I/O & Bowel function: Last BM unknown Skin Integrity: Redness coccyx, dry skin/cellulitis BLE (R > L), surgical incisions LLE Edema: BAIRON pedal 3+, BAIRON hands 2+, generalized abdomen Estimated Nutrition Needs: 4243-1514 kcals/day (22-25 kcals/kg IBW) 121-202 g protein/day (1.5-2.5 g/kg IBW) *While in rhabo with renal failure protein needs should be restricted, suggest 81-121 g protein/day (1-1.5 g/kg IBW) Fluid needs increased while in rhabdo, per MD recs Assessment: Chart reviewed, events noted. See admitting dx and PMH as stated above. Yesterday the patient was on nasal cannula + bipap while sleeping. He is now POD #1 LLE compartment syndrome repair and remains intubated. He is in rhabdo with renal failure, received HD yesterday and will be started on CRRT today. He is on fentanyl and 1 pressor. Of note, he is morbidly obese and may be difficult to extubate. Informed nursing I would leave RN recs. See below, will continue to follow hospital course. Dx: 1) Stage III obese r/t PMH, diet, lifestyle AEB BMI 67. 2) Inadequate energy intake r/t clinical condition, vent dependence AEB NPO x 2 days, possible need for EN. 3) Altered nutrition related lab values r/t hx DM, renal failure AEB glucose POC 224-268, [facility] Nutrition Therapy DATE: 12/07/16 Patient: JONATAN Andrade CHAN Physician: ADENIKE Address: [address] Room/Bed: [address], Zip: [place] [address] Admit Date: 12/06/16 Date of : [birth year] Height: 6 0 Weight: 569 258.3 BUN 30, creat 3.5, Phos 6.5, GFR 17.8. Intervention: EN recs as stated below Monitoring, Evaluation and Goals: 1. EN consistent with estimated nutritional needs. 2. Improvement in labs (glucose, BUN, creat, lyts, GFR, AST, ALT). 3. Promote wound healing. 4. Once appropriate: gradual weight loss towards a healthy BMI range. Monitor: per protocol, criteria to determine if above goals met. Recommendations: 1. If the patient is to remain intubated > [address] DHT and initiating enteral nutrition with Nepro @ 20 ml/hr. Increase by 10 ml q 4 hours until goal rate of 45 ml/hr to provide 1080 ml, 1944 kcals, 88 g protein and 788 ml water. IVF and free water flushes per MD. Suggest aggressive fluids and restriction of protein while in rhabdo given current kidney function. Once rhabdo and BOWEN resolve, if the patient is requiring enteral nutrition please add 30 ml Prostat supplement via tube TID to meet protein needs. This will provide an additional 300 kcals and 45 g protein to the above regimen. 2. Optimize insulin regimen to promote adequate blood glucose control. 3. Wound care prn. 4. If extubated advance to healthy heart/60g carb diet. RD will follow Moderate-severe nutrition risk Respectfully, Che Macario, BARBIE, LD [employer] [facility] cc: client file
--- NOTE | ~2016-12-06 | CR71 ---
[facility] A Service of [facility] & [facility] RADIOLOGY TEXT RESULTS PATIENT: JONATAN GILES LOCATION: [address] : [birth year] UNIT #: [id number] AGE: [address]: Kamala Coon MD SEX: M ORDER DR: [id number] [facility] [address] [place], [place] [address] [id number] I MR#: [id number] Acc #: [id number] NAME: JONATAN GILES : 1955 SEX: M STUDY DATE/TIME: 12/09/2016 16:02 UNIT: [facility] ROOM: [facility] STUDY DESCRIPTION: CR Chest Single View Attending Physician: Neida Palacios M.D. Ordering Physician: Ed Saroj Hawthorne M.D. Primary Care Physician: Raquel Kwon M.D. MEDICAL IMAGING REPORT This report is preliminary unless electronic signature is present EXAM AP portable chest 12/09/2016 at 16:02 HISTORY Second step Dobbhoff tube placement. Abdominal pain. Shortness of breath and congestion. Symptoms present for 1 hour. Morbid obesity. COMPARISON AP portable chest 12/09/2016 at 04:19. FINDINGS Enteric feeding tube projects over the midline of the mit-qk-vazyb chest, presumably within the qcj-op-eclpx thoracic esophagus. Cyyvlneb-mo-zbbkpv cardiomegaly persists with features of central vascular congestion and interstitial edema. Lung bases are not completely included in the imaging field of view, but bibasilar atelectatic changes are thought to be present with small right pleural effusion. Right IJ central line unchanged. No visible pneumothorax. ET tube is in the jlj-ft-xhmud thoracic trachea. Dictated by... Cassandra Ramírez M.D. THIS IS AN ELECTRONICALLY VERIFIED REPORT Cassandra Ramírez M.D. at 12/10/2016 9:55 AM LL/jorje TD: 12/09/2016 19:46 JOB #: [id number] MEDICAL IMAGING REPORT [facility] A Service of [facility] & [facility] RADIOLOGY TEXT RESULTS PATIENT: JONATAN GILES LOCATION: [address] : [birth year] UNIT #: [id number] AGE: [address]: Kamala Coon MD SEX: M ORDER DR: Page 1 of 1 COPY
--- NOTE | ~2016-12-06 | CO ---
Unit #: [id number] #: [id number] Patient: JONATAN GILES [id number] [address] [place], [place] [address] [id number] I MR#: [id number] NAME: JONATAN GILES ROOM: [facility]3 Age: 61 Sex: M Admission Date: 12/06/2016 : 1955 Attending Physician: Neida Palacios M.D. Primary Care Physician: Raquel Kwon M.D. Consultation Date: 12/08/2016 CONSULTATION REPORT REASON FOR CONSULTATION Septic shock. HISTORY OF PRESENT ILLNESS The patient is a 61-year-old male, at this time, he is intubated and no family members at the bedside. All of the history is from the chart. Apparently, he fell down while he was trying to get off the commode and was on the floor for 5 hours. Finally, he was brought into the hospital and found out to be in acute renal failure and rhabdomyolysis. There were some concerns of compartment syndrome of the left lower extremity. He went to the OR and fasciotomy was done. According to my discussion with Dr. Castano, there was no evidence of any pus or infectious process in the leg. The patient has been afebrile. He is on multiple pressors, which actually has been weaned off. He is on dialysis. He is on meropenem and Zyvox. Cultures have been negative. Infectious Disease consultation requested for further evaluation and antibiotic management. PAST MEDICAL HISTORY 1. Left hip cellulitis in the past. 2. Essential hypertension. 3. Hyperlipidemia. 4. Paroxysmal atrial fibrillation. 5. Type 2 diabetes. 6. Obstructive sleep apnea. 7. COPD. 8. BPH. 9. Lap band placement. 10. Chest tube placement. 11. Morbid obesity. SOCIAL HISTORY Noncontributory. FAMILY HISTORY Noncontributory. ALLERGIES Allergic to penicillin. According to this chart, reaction unknown. CURRENT MEDICATIONS List reviewed. Antibiotics include Zyvox and meropenem. PHYSICAL EXAMINATION GENERAL: Lying in bed, intubated. Unit #: [id number] #: [id number] Patient: JONATAN GILES VITAL SIGNS: Temperature 99, pulse 103, respirations 20, blood pressure 109/56. HEENT: Unremarkable. NECK: Supple. CHEST: Clear to auscultation. HEART: Normal S1, S2. ABDOMEN: Soft, nontender. EXTREMITIES: Show 1+ bipedal edema more so on the left side. Incision of fasciotomy are clean. DIAGNOSTIC STUDIES IMAGING STUDIES: Chest x-ray shows bibasilar consolidation or atelectasis. LABORATORY RESULTS: BUN 14, creatinine 2.1. AST 242, ALT 129, alkaline phosphatase 60, total bilirubin 0.6. CPK was 17,000 upon admission, now it is 11,000. Lactic acid 4.1. WBC 8.6, hemoglobin 11.4, platelets 170. Urinalysis is unremarkable. Blood and urine cultures are negative so far. ASSESSMENT 1. Acute rhabdomyolysis. 2. Acute kidney injury secondary to above. 3. Status post fall. 4. Respiratory failure. 5. Left lower extremity fasciotomy for possible compartment syndrome. 6. Lactic acidosis. 7. Morbid obesity. 8. Possible pneumonia. PLAN At this time, does not look like the patient has acute infectious process as far the leg is concern, though chest x-ray shows some dense consolidations or infiltrates. We will go ahead and get a sputum for Gram stain, culture, and procalcitonin level. Continue with meropenem and Zyvox for now. Further recommendation depending upon the course. I would like thank Dr. Palacios for requesting us to participate in the care of this patient. We will follow this patient along with you. Dictated by... Huber Hanley/live TD: 12/08/2016 19:20 JOB #: [id number] CONSULTATION REPORT Page 1 of 1 X Sj Guevara MD CONSULTATION REPORT
--- NOTE | ~2016-12-06 | EKG ---
PATIENT: JONATAN GILES UNIT #: [id number] Ventricular Rate: 117 BPM Atrial Rate: 115 BPM QRS Duration: 88 ms Q-T Interval: 300 ms QTC Calculation(Bezet): 418 ms Calculated R [place]: 38 degrees Calculated T [place]: 44 degrees Diagnosis Line: Sinus tachycardia Diagnosis Line: Low voltage QRS Diagnosis Line: Normal ECG Diagnosis Line: When compared with ECG of 31-MAY-2016 12:11, Diagnosis Line: Vent. rate has increased BY 51 BPM Diagnosis Line: Confirmed by ARMANDO ANN MD ([id number]) on 12/06/2016 Diagnosis Line: 6:50:46 PM INTERPRETING MD: SETH CHRIS
--- NOTE | ~2016-12-06 | CR106 ---
[facility] A Service of [facility] & [facility] RADIOLOGY TEXT RESULTS PATIENT: JONATAN GILES LOCATION: [address] : [birth year] UNIT #: [id number] AGE: [address]: Neida Palacios MD SEX: M ORDER DR: [id number] [facility] [address] [place], [place] [address] [id number] I MR#: [id number] Acc #: [id number] NAME: JONATAN GILES. : 1955 SEX: M STUDY DATE/TIME: 12/06/2016 01:53 UNIT: [facility] ROOM: [facility] STUDY DESCRIPTION: CR Femur 2 Views Lt Attending Physician: Arabella Mathews M.D. Ordering Physician: Bryan Bella M.D. Primary Care Physician: Raquel Kwon M.D. MEDICAL IMAGING REPORT This report is preliminary unless electronic signature is present EXAM Left femur 12/06 01:53 INDICATION Leg pain after a fall 2 days ago. FINDINGS Five views of the femur were obtained. The exam is degraded by patient's morbid obesity. There is osteoarthritis in the left hip and knee. No acute fracture is seen. IMPRESSION Exam limited due to patient obesity. No definite acute fracture. There is osteoarthritis in the hip and knee. Dictated by... Joseph Brandt Jr., M.D. THIS IS AN ELECTRONICALLY VERIFIED REPORT Joseph Brandt Jr., M.D. at 12/07/2016 12:52 AM ZACH/emily TD: 12/06/2016 08:16 JOB #: [id number] MEDICAL IMAGING REPORT Page 1 of 1 COPY
--- NOTE | ~2016-12-06 | OR ---
Unit #: [id number] #: [id number] Patient: JONATAN GILES [id number] [address] [place], [place] [address] [id number] MR#: [id number] NAME: JONATAN GILES. ROOM: [facility] Date of Procedure: 12/18/2016 Admission Date: 12/06/2016 Surgeon: Parveen Knox M.D. : 1955 Attending Physician: Kamala Coon M.D. Primary Care Physician: Raquel Kwon M.D. OPERATIVE REPORT POSTOPERATIVE DIAGNOSIS Renal failure. POSTOPERATIVE DIAGNOSIS Renal failure. PROCEDURES PERFORMED 1. Insertion of right IJ tunneled catheter with C-arm fluoroscopy. 2. Removal of right IJ Shiley catheter. ANESTHESIA MAC with local. INDICATION This is a morbidly obese male with a right IJ temporary dialysis catheter, who was recommended a tunneled catheter. Options, risks, and benefits were explained and he agreed to proceed. DESCRIPTION OF PROCEDURE The patient was brought to the operating room and IV sedation was administered and monitored by Anesthesia. The neck and chest were cleaned, prepped, and draped in the usual sterile fashion. A 1% lidocaine was infiltrated and a small skin incision was made below the site of the entry of the temporary dialysis catheter. Using fluoroscopy, the right internal jugular vein was entered with a needle and a guidewire was passed and confirmed with the right side of the heart with C-arm fluoroscopy. After serial dilatation, dilator and sheath were placed and the dilator and the wire were removed leaving the sheath in place. A 31-cm NextStep catheter was passed through the sheath and the sheath was peeled away. A subcutaneous tunnel was made and the catheter was pulled through the tunnel leaving the cuff under the skin. Tip of the catheter was in the lower part of the right atrium and with fluoroscopy. No kinks were noted. Catheter was trimmed appropriately, attached to the Y connectors, aspirated revealing free flow of venous blood, flushed, and heparinized with one in 3000 units of heparin. It was affixed to the skin with 3-0 nylon, and skin incision in the neck was closed with 4-0 Monocryl. Dressings were placed. Next, the temporary dialysis catheter was removed and pressure was used for hemostasis and dressings were placed. The patient was transported to the recovery room in a stable condition. Unit #: [id number] #: [id number] Patient: JONATAN GILES Dictated by..Mare Knox M.D. SA/live TD: 12/20/2016 06:42 JOB #: [id number] OPERATIVE REPORT Page 1 of 1 X Parveen Knox MD PROCEDURE OPERATIVE NOTE
--- NOTE | ~2016-12-06 | DS ---
Unit #: [id number] #: [id number] Patient: JONATAN GILES [id number] [address] [place], [place] [address] [id number] I MR#: [id number] NAME: JONATAN GILES. ROOM: [facility] Age: 61 Sex: M Admission Date: 12/06/2016 : 1955 Discharge Date: 12/20/2016 Attending Physician: Kamala Coon M.D. Primary Care Physician: Raquel Kwon M.D. DISCHARGE SUMMARY ADDENDUM HOSPITAL COURSE Please note the patient remained stable overnight. He is having some difficulty with his newly placed tunnelled hemodialysis catheter today, but awaiting cath flow. Assuming catheter works correctly later today and he dialyzes and pre-cert is obtained, he will be transferred to [facility]. DISCHARGE MEDICATIONS Please note Zoloft has been increased to 50 mg at bedtime. Dictated by... Kamala Coon M.D. ALHAJI/natalie TD: 12/20/2016 08:23 JOB #: [id number] DISCHARGE SUMMARY Page 1 of 1 X Kamala Coon MD DISCHARGE SUMMARY
--- NOTE | ~2016-12-06 | CR72 ---
[facility] A Service of [facility] & [facility] RADIOLOGY TEXT RESULTS PATIENT: JONATAN GILES LOCATION: [place] [id number] : [birth year] UNIT #: [id number] AGE: [address]: Kamala Coon MD SEX: M ORDER DR: [id number] [facility] [address] [facility]. [place], [place] [address] [id number] I MR#: [id number] Acc #: [id number] NAME: JONATAN GILES. : 1955 SEX: M STUDY DATE/TIME: 12/14/2016 5:46 UNIT: [facility] ROOM: [facility] STUDY DESCRIPTION: CR Chest Single View Portable Attending Physician: Kamala Coon M.D. Ordering Physician: Madeline Mills M.D. Primary Care Physician: Raquel Kwon M.D. MEDICAL IMAGING REPORT This report is preliminary unless electronic signature is present EXAM Single view chest INDICATIONS Respiratory failure. Shortness of air. Septic shock. TECHNIQUE Single portable AP view of the chest compared to 12/12/2016. FINDINGS Support lines and tubes remain in place. Heart mediastinal contours are unchanged. The heart is enlarged. There is some mild linear atelectasis in the left lung and a large moderate effusion on the right. No pneumothorax. IMPRESSION No interval change Dictated by... Mauricio Jeong M.D. THIS IS AN ELECTRONICALLY VERIFIED REPORT Mauricio Jeong M.D. at 12/14/2016 2:52 PM Sheela TD: 12/14/2016 14:41 JOB #: [id number] MEDICAL IMAGING REPORT Page 1 of 1 COPY
--- NOTE | ~2016-12-06 | EKG ---
PATIENT: JONATAN GILES UNIT #: [id number] Ventricular Rate: 89 BPM Atrial Rate: 89 BPM P-R Interval: 134 ms QRS Duration: 104 ms Q-T Interval: 358 ms QTC Calculation(Bezet): 435 ms P [place]: 44 degrees Calculated R [place]: 52 degrees Calculated T [place]: 118 degrees Diagnosis Line: Normal sinus rhythm Diagnosis Line: Nonspecific T wave abnormality Diagnosis Line: Abnormal ECG Diagnosis Line: When compared with ECG of 06-DEC-2016 00:56, Diagnosis Line: Nonspecific T wave abnormality now evident in Diagnosis Line: Inferior leads Diagnosis Line: Confirmed by ARMANDO ANN MD ([id number]) on 12/14/2016 Diagnosis Line: 5:07:28 PM INTERPRETING MD: SETH CHRIS
--- NOTE | ~2016-12-06 | CR72 ---
[facility] A Service of [facility] RADIOLOGY TEXT RESULTS PATIENT: JONATAN GILES LOCATION: [address]24 : [birth year] UNIT #: [id number] AGE: [address]: Kamala Coon MD SEX: M ORDER DR: [id number] [facility] [address]. [place], [place] [address] [id number] I MR#: [id number] Acc #: [id number] NAME: JONATAN GILES : 1955 SEX: M STUDY DATE/TIME: 12/18/2016 15:59 UNIT: [facility] ROOM: [facility] STUDY DESCRIPTION: CR Chest Single View Portable Attending Physician: Kamala Coon M.D. Ordering Physician: Parveen Knox M.D. Primary Care Physician: Raquel Kwon M.D. MEDICAL IMAGING REPORT This report is preliminary unless electronic signature is present EXAM AP radiograph of the chest 12/18/2016 HISTORY Shortness of air. Postop tunneled catheter 2 weeks duration. TECHNIQUE AP radiographs of the chest are presented. COMPARISON STUDIES 12/18/2016, 0422 hours. FINDINGS Current study is somewhat limited secondary to poor radiographic technique and patient large body habitus. Interval removal of right internal jugular approach central venous catheter and placement of a right internal jugular approach tunneled central venous catheter which terminates in the upper right atrium. No acute bony abnormality. Stable cardiac enlargement. Pulmonary vasculature is prominent suggesting underlying vascular congestion. Continued central interstitial prominence and patchy airspace density with dense opacification in the right lower lung zone and small right pleural effusion. Findings probably reflect relatively mild pulmonary edema involving predominantly the interstitium with associated airspace involvement right lower lobe and/or some component of right lower lobe atelectasis. Small right pleural effusion. No pneumothorax. Dictated by... Uli Agee M.D. THIS IS AN ELECTRONICALLY VERIFIED REPORT Uli Agee M.D. at 12/19/2016 7:53 PM [facility] A Service of [facility] RADIOLOGY TEXT RESULTS PATIENT: JONATAN GILES LOCATION: [facility] CICCU3-24 : 55 UNIT #: [id number] AGE: [address]: Kamala Coon MD SEX: M ORDER DR: TIMUR/lizzette TD: 12/18/2016 21:38 JOB #: [id number] MEDICAL IMAGING REPORT Page 1 of 1 COPY
--- NOTE | ~2016-12-06 | CO ---
Unit #: [id number] #: [id number] Patient: JONATAN GILES [id number] [place] [id number] [facility]. [place], [place] [address] [id number] MR#: [id number] NAME: JONATAN GILES. ROOM: [facility] Age: 61 Sex: M Admission Date: 12/06/2016 : 1955 Attending Physician: Neida Palacios M.D. Primary Care Physician: Raquel Kwon M.D. Consultation Date: 12/06/2016 CONSULTATION REPORT REFERRING PHYSICIAN Dr. Castano, for surgical clearance. This is a 61-year-old gentleman with a history of recurrent cellulitis of the back. He has got insulin dependent diabetes mellitus. He has obstructive sleep apnea, CPAP usage, quite compliant with it. Patient was last in the hospital for cellulitis in May of 2016. Patient apparently had a toilet fracture under him. He laid on it for approximately four hours, unable to get up. The patient had developed mild necrosis and rhabdo. The patient's CK is 24,682. D-dimer is greater than 10,000. Patient is awake, alert, is on 2-4 L of oxygen. However, he started due to severe pain in the left lower extremity. This was examined by vascular surgery. There is concern that he has developing compartment syndrome so he is going to have fasciotomy emergently. We have been asked to see for pulmonary clearance. The patient has a history of tobacco use but no recent pulmonary function test. The patient is on BiPAP, tends to desaturate and has some respiratory distress. BUN and creatinine is elevated at 27/2.9, likely secondary to the severe rhabdo. Nephrology has also been consulted. PAST MEDICAL HISTORY Significant for: 1. Hypertension. 2. Hyperlipidemia. 3. Irregular heartbeat, unknown etiology. 4. Insulin dependent diabetes mellitus type 2. 5. Obstructive sleep apnea. 6. History of COPD. 7. History of benign prostatic hypertrophy. 8. History of morbid obesity. 9. History of smoking. 10. Recurrent cellulitis of the hip, back and buttocks. SOCIAL HISTORY Patient is . Quit smoking about four years ago. Smoked since age 36. FAMILY HISTORY Is negative for coronary artery disease. ALLERGIES Patient is allergic to penicillin. MEDICATIONS Unit #: [id number] #: [id number] Patient: JONATAN GILES Home medications include: 1. ProAir two puffs every four hours p.r.n. shortness of breath. 2. Metformin 1000 mg b.i.d. 3. Dulera two puffs b.i.d. 4. Nystatin t.i.d. for one week. 5. Norvasc 5 mg daily. 6. Ditropan 15 mg daily. 7. Lipitor 40 mg daily. 8. Hydralazine 25 mg t.i.d. 9. Lisinopril 20 mg b.i.d. 10. Apidra 75 units t.i.d. with meals. 11. Lantus 70 units subcu b.i.d. 12. Singular 10 mg daily. 13. Aspirin 81 mg daily. 14. Daliresp 500 mg p.o. daily. 15. Betamethasone cream b.i.d. to buttocks. PHYSICAL EXAMINATION VITAL SIGNS: T-current 98.3, pulse 102, respiratory rate 28, blood pressure 119/67. The patient is sat'ing 89% on 4 L nasal cannula. HEENT: Extraocular movements intact. Patient is on BiPAP. Pupils equal, round, reactive to light. Head is normocephalic, atraumatic. NECK: Shows some mild accessory muscle use. CHEST: Shows decreased breath sounds bilaterally. CARDIOVASCULAR EXAM: Regular rate, no gallop. ABDOMEN: Soft, nontender, nondistended. EXTREMITIES: Decreased pulses. Left lower extremity shows significant erythema. DIAGNOSTIC STUDIES LABORATORY: White count is 6.5, hemoglobin 15.7, platelets 188, sodium 137, potassium 5.2, BUN 27, creatinine 2.9, bicarb 22. IMAGING: Chest x-ray shows no evidence of infiltrates. The tib/fib as well as femur just shows osteoarthritis of hip and knee. X-ray of the L-spine does not show any abnormalities. ASSESSMENT AND PLAN Patient with probable compartment syndrome, severe rhabdomyolysis and acute renal insufficiency. PLAN 1. Benefits of surgery outweigh the risks to (1) postop complication. 2. About 13.3% (2) postop respiratory failure. 3. About 10% chance of respiratory failure within the first 48 hours postoperation. This makes the patient moderate. However, I strongly believe that the risks of the surgery are far outweighed by benefits and, therefore, patient should have surgery as soon as possible to avoid risk to life and limb. We are going to do scheduled Duo-Nebs every four hours. If patient comes back on ventilator, we are going to see if we can wean patient off. Even after he is weaned off, patient should stay on BiPAP. Should continue fluid resuscitation with bicarb per nephrology. Thank you for this consult and allowing us to participate in the care of Unit #: [id number] #: [id number] Patient: JONATAN GILES this patient. Dictated by... Huber Ferris/wilmer TD: 12/06/2016 12:18 JOB #: [id number] CONSULTATION REPORT Page 1 of 1 X Jason Mills MD X CONSULTATION REPORT
--- NOTE | ~2016-12-06 | CO ---
Unit #: [id number] #: [id number] Patient: ANDREW GILES [id number] [address] [place], [place] [address] [id number] MR#: [id number] NAME: NADREW GILES. ROOM: [facility] Age: 61 Sex: M Admission Date: 12/06/2016 : 1955 Attending Physician: Kamala Coon M.D. Primary Care Physician: Raquel Kwon M.D. Consultation Date: 12/17/2016 CONSULTATION REPORT ADDITIONAL REFERRING PHYSICIAN Junito Cueva M.D. REASON FOR CONSULTATION Chronic renal insufficiency, requiring longer term permanent dialysis access. HISTORY OF PRESENT ILLNESS The patient is a 61-year-old gentleman, admitted with left lower extremity cellulitis, who had a fall and was laying down on the ground for extended period of time. He had left lower extremity compartment syndrome while in the hospital and underwent release of pressure. He had continued issues with sepsis and respiratory failure as well as acute kidney injury from the rhabdomyolysis. He had a temporary dialysis catheter placed and is doing well with that. He is now extubated and he requires longer-term dialysis to aid in kidney function improvement. He was seen in the hospital bed today in the ICU. He is doing well, but is somewhat soft spoken and he answers limited questions. He reports no new concerns or discomfort at this time. He reports no fevers or chills. He reports tolerating diet as he is prescribed. PAST MEDICAL HISTORY 1. Atrial arrhythmias. 2. Hypertension. 3. Hyperlipidemia. 4. Diabetes mellitus. 5. COPD. 6. Chronic kidney disease. 7. Morbid obesity. PAST SURGICAL HISTORY 1. Left lower extremity compartment syndrome fasciotomy. 2. Lap band surgery. MEDICATIONS Protonix 40 mg daily, Diflucan 100 mg nightly, Zoloft 25 mg nightly, Lopressor 25 mg every 8 hours, insulin sliding scale, Percocet 10 mg every 6 hours, DuoNeb inhaled every 4 hours as needed, hydralazine 10 mg every 6 hours as needed for hypertension. ALLERGIES Penicillin. FAMILY HISTORY Unit #: [id number] #: [id number] Patient: ANDREW GILES Currently noncontributory to his current medical status, but no known history of coronary disease or kidney disease. SOCIAL HISTORY Past smoker, but quit smoking 4 years ago. Does not use alcohol. REVIEW OF SYSTEMS Per the HPI. The remainder of the 14-point review of systems negative per questioning. PHYSICAL EXAMINATION VITAL SIGNS: Temperature 99, pulse 78, blood pressure 126/63, respirations were 20. GENERAL APPEARANCE: The patient is a well-groomed, well-developed individual and appearing his stated age, in no distress. Answering questions appropriately in the ICU. HEENT: Pupils equal and reactive to light and accommodation. Extraocular movements are intact. Mucous membranes are moist. No intraoral mucosal lesion or infections. NECK: Supple. No JVD. No carotid bruits. Bilateral right IJ Shiley catheter in place. LUNGS: Clear to auscultation bilaterally. HEART: S1 and S2. Regular rate and rhythm. No murmurs. ABDOMEN: Soft, nontender, nondistended. Positive bowel sounds. No abdominal masses or hernias are noted. The patient is obese. VASCULAR: Positive radial and femoral pulses. Pedal pulses not palpable. EXTREMITIES: Left lower leg is dressed with overlying dressing. MUSCULOSKELETAL: No soft tissue masses or bony deformities. No limb length or limb circumference abnormalities bilaterally. SKIN: No skin lesions, wounds, ulcerations, or dermatologic changes. LYMPHATICS: No lymphadenopathy of cervical or femoral chain. PSYCHIATRIC: Alert and oriented x3. NEUROLOGIC: Cranial nerves II through XII are intact, 4/5 strength in all extremities. IMPRESSION AND PLAN Mr. Andrew Giles with acute kidney injury, requiring dialysis. Mr. Giles was told that we will plan for tunneled dialysis catheter placement on 12/18/2016. He will be made n.p.o. after midnight and have antibiotic protocol for the OR. He was told of the planned procedure including the associated risks and benefits and he wishes to proceed. All questions were answered to his satisfaction. Thank you for having us to see Mr. Giles and if you have any questions, do not hesitate to contact me. Dictated by... Trudy Werner M.D. FRANKLYN/live TD: 12/19/2016 13:34 JOB #: [id number] Unit #: [id number] #: [id number] Patient: ANDREW GILES CONSULTATION REPORT Page 1 of 1 X Trudy Werner MD CONSULTATION REPORT
--- NOTE | ~2016-12-06 | US84 ---
[id number] [facility] [address] [place], [place] [address] [id number] I MR#: [id number] Acc #: [id number] NAME: JONATAN GILES : 1955 SEX: M STUDY DATE/TIME: 12/06/2016 17:13 UNIT: [facility] ROOM: [facility] STUDY DESCRIPTION: US LE Veins Complete Diego Stdy Attending Physician: Neida Palacios M.D. Ordering Physician: Neida Palacios M.D. Primary Care Physician: Raquel Kwon M.D. MEDICAL IMAGING REPORT This report is preliminary unless electronic signature is present EXAM Bilateral lower extremity venous duplex, 12/06/2016. HISTORY Bilateral lower extremity pain and edema for 2 days. Cellulitis, shortness of breath, elevated D-dimer and chest pain. Evaluate for deep vein thrombosis. TECHNIQUE Venous ultrasound examination of both lower extremities was performed using grayscale, spectral Doppler and color flow Doppler imaging. FINDINGS The examination is negative. There is no evidence of deep venous thrombus from the groin to the lower calf bilaterally. Visualized greater saphenous veins are also patent. IMPRESSION Negative examination. No evidence of lower extremity DVT. Dictated by... Yuan Phillips M.D. THIS IS AN ELECTRONICALLY VERIFIED REPORT Yuan Phillips M.D. at 12/10/2016 2:10 PM Keron TD: 12/07/2016 17:03 JOB #: [id number] MEDICAL IMAGING REPORT Page 1 of 1 COPY
--- NOTE | ~2016-12-06 | CR72 ---
[facility] A Service of [facility] & [facility] RADIOLOGY TEXT RESULTS PATIENT: JONATAN GILES LOCATION: [address] : [birth year] UNIT #: [id number] AGE: [address]: Neida Palacios MD SEX: M ORDER DR: [id number] [facility] [address]. [place], [place] [address] [id number] I MR#: [id number] Acc #: [id number] NAME: JONATAN GILES. : 1955 SEX: M STUDY DATE/TIME: 12/08/2016 4:42 UNIT: [facility] ROOM: [facility] STUDY DESCRIPTION: CR Chest Single View Portable Attending Physician: Neida Palacios M.D. Ordering Physician: Madeline Mills M.D. Primary Care Physician: Raquel Kwon M.D. MEDICAL IMAGING REPORT This report is preliminary unless electronic signature is present EXAM Chest x-ray, 12/08/2016. HISTORY Respiratory failure. Patient on ventilator. Follow up cardiopulmonary status. TECHNIQUE AP portable chest x-ray. FINDINGS The exam shows no change since yesterday. Endotracheal tube and right IJ central line remain in good position. Cardiomegaly with diffusely increased interstitial markings throughout both lungs and more dense airspace consolidation and volume loss in the right lower lung. Low lung volumes. No pneumothorax. IMPRESSION Stable portable chest radiograph, unchanged since yesterday. Dictated by... Hermilo Staley M.D. THIS IS AN ELECTRONICALLY VERIFIED REPORT Hermilo Staley M.D. at 12/08/2016 3:54 PM RGW/gayathri TD: 12/08/2016 12:52 JOB #: [id number] MEDICAL IMAGING REPORT [facility] A Service of [facility] & [facility] RADIOLOGY TEXT RESULTS PATIENT: JONATAN GILES LOCATION: [address] : [birth year] UNIT #: [id number] AGE: [address]: Neida Palacios MD SEX: M ORDER DR: Page 1 of 1 COPY
--- NOTE | ~2016-12-06 | CR72 ---
[facility] A Service of [facility] & [facility] RADIOLOGY TEXT RESULTS PATIENT: JONATAN GILES LOCATION: [address]24 : [birth year] UNIT #: [id number] AGE: [address]: Neida Palacios MD SEX: M ORDER DR: [id number] [facility] [address] [facility]. [place], [place] [address] [id number] I MR#: [id number] Acc #: [id number] NAME: JONATAN GILES : 1955 SEX: M STUDY DATE/TIME: 12/06/2016 13:44 UNIT: [facility] ROOM: [facility] STUDY DESCRIPTION: CR Chest Single View Portable Attending Physician: Neida Palacios M.D. Ordering Physician: Physician Non-Staff Primary Care Physician: Raquel Kwon M.D. MEDICAL IMAGING REPORT This report is preliminary unless electronic signature is present EXAM Portable chest x-ray 12/06/2016 HISTORY Status post central line and endotracheal tube placement. FINDINGS Three AP radiographs of the chest are presented. Comparison to earlier on the same date. The current images are markedly limited due to the patient's very large body habitus. There has been interval placement of a right internal jugular central venous catheter, which terminates in the superior vena cava. Interval placement of an endotracheal tube, which terminates at the lower T3 vertebral body level. The tracheal jovanny is very difficult to visualize. The endotracheal tube probably terminates approximately 3-4 cm above the jovanny, but this is somewhat unclear. Attention at followup is recommended. The heart shows stable enlargement. Lung volumes significantly lower than on prior examination with resulting bronchovascular crowding. The pulmonary vasculature is prominent, more than anticipated for low lung volumes as etiology alone, and in addition, there are interstitial and airspace densities in the bilateral perihilar and infrahilar regions, greater on right than left. Some component may reflect the low lung volumes and atelectasis. Central edema with interstitial and airspace components or developing bilateral pneumonia could be considered. Ill-defined right lateral costophrenic sulcus likely reflects combination of trace effusion and atelectasis. There is no pneumothorax seen. Dictated by... Uli Agee M.D. THIS IS AN ELECTRONICALLY VERIFIED REPORT Uli Agee M.D. at 12/08/2016 10:02 PM [facility] A Service of [facility] & [facility] RADIOLOGY TEXT RESULTS PATIENT: JONATAN GILES LOCATION: [place] [address]-24 : [birth year] UNIT #: [id number] AGE: [address]: Neida Palacios MD SEX: M ORDER DR: TIMUR/jorje TD: 12/06/2016 22:23 JOB #: [id number] MEDICAL IMAGING REPORT Page 1 of 1 COPY
--- NOTE | ~2016-12-06 | CO ---
Unit #: [id number] #: [id number] Patient: ANDREW SNOWDEN [id number] [place], [place] [address] [id number] I MR#: [id number] NAME: ANDREW SNOWDEN ROOM: [facility] Age: 61 Sex: M Admission Date: 12/06/2016 : 1955 Attending Physician: Neida Palacios M.D. Primary Care Physician: Raquel Kwon M.D. Consultation Date: 12/06/2016 CONSULTATION REPORT REASON FOR CONSULT Renal failure. HISTORY Thank you very much for asking us to see this patient in consultation. Mr. Andrew Snowden is a 61-year-old male who presented to the hospital. Apparently he was in his bathroom and fell and lay on the floor for at least 4 hours. He presented here, was noted to have an increased BUN and creatinine of 29 and 2.9 with a serum CPK of 24,682. The patient was started on IV fluids and was admitted to the ICU. He currently is arousable but somnolent some. He actually is getting ready to go to surgery for fasciotomy for probable compartment syndrome of his left lower leg. The patient currently states he is not having any shortness of breath, chest pain, nausea, vomiting or diarrhea at home. PAST MEDICAL HISTORY 1. History of insulin-dependent diabetes mellitus. 2. History of obesity. 3. History of hypertension. 4. History of hyperlipidemia. 5. History of obstructive sleep apnea. 6. History of COPD. 7. History of BPH. 8. Status post Lap-Band in 2006. 9. History of cellulitis of his buttocks in May 2016. ALLERGIES Penicillin. SOCIAL HISTORY He is a previous smoker. No alcohol. He is . MEDICATIONS His medicines at home included metformin, Norvasc, Lipitor, hydralazine, Lasix, insulin, aspirin, Singulair. REVIEW OF SYSTEMS Apparently he was not having any fevers, chills, visual problems, sinus problems. Apparently no cough, no significant shortness of breath, no severe abdominal pain. Again, a lot of pain in his legs. No recent seizures or strokes. He does have some numbness in his left leg, a lot of pain in his left leg, as well as increased swelling. FAMILY HISTORY Unit #: [id number] #: [id number] Patient: ANDREW SNOWDEN Noncontributory. PHYSICAL EXAMINATION GENERAL: He is alert. VITAL SIGNS: T max since admission is 98.3, pulse 102 to 121, blood pressure is 98 to 128/60s to 90s. His output has not been recorded. Chaudhary catheter was placed with about 250 mL out initially. HEENT: Normocephalic, atraumatic. Pupils are equal, round and reactive to light. Extraocular muscles are intact. Hearing appears to be normal. Mouth is clear, no erythema, no exudate. NECK: Supple. No adenopathy. CARDIAC: He has a regular rhythm without a rub. No S3 or S4. A little tachycardic. LUNGS: His lungs are fairly clear but distant. ABDOMEN: Very obese. Bowel sounds positive. Nontender. EXTREMITIES: He has positive edema bilaterally, worse on the left than the right. He has erythema all the way up his leg to his groin area. NEUROLOGIC: He is alert, able to move all extremities. DIAGNOSTIC STUDIES LABORATORY DATA: His ABG showed pH of 7.371, pCO2 of 34, pO2 of 93 on 4 liters. Calcium is 8.2, albumin 1.9, AST 366, ALT 107. CPK is 24,682. BNP is 171. Lactic acid is 4.1. Hemoglobin is 15.7, white count 6,500, platelets 188,000. Sodium is 132, potassium 5.2, chloride 102, bicarb 22, BUN 27, creatinine 2.9, glucose 209. In May of 2016 creatinine ranged between 1.2 to 1.4. In 2015 creatinine was 1 to 1.4 through the whole year. In 2008 he had 3+ proteinuria. In 2009 he had 3+ proteinuria, as well. I do not have a urine here yet. ASSESSMENT AND PLAN 1. Acute on probably chronic kidney disease stage 3. Patient with acute renal failure, most likely related to rhabdomyolysis. Certainly he may get worse before he gets better. I am going to change his IV fluids to D5W with 3 amps of bicarb at 150 mL an hour. Will go ahead and give him a dose of Bumex later today after surgery to see if we can get his output to seed cone picker. Certainly, I agree with surgery, and hopefully, with improvement of his compartment syndrome, his CPK will start to improve. Certainly, he is at increased risk to develop worsening renal failure with his rhabdomyolysis. If his renal function continues to worsen or if he becomes significantly hyperkalemic, we may need to consider dialysis. For now, will give IV fluids, treat the compartment syndrome. I am going to go ahead and stop his Lipitor, which he is still taking, due to also risk with rhabdomyolysis on it, as well. Will check a STAT BMP now, as well as intermittently or check CPK and a full set of electrolytes in the morning. Will order a renal ultrasound, portable. Will check UA, culture and sensitivity and will follow. 2. Proteinuria. Patient with protein in his urine at least over the last 6 to 7 years, actually almost 8 years now. I suspect it is probably underlying diabetic renal disease, although it certainly could be focal segmental glomerulosclerosis with his obesity. I will probably hold off any major workup on that until we see where his kidneys go and his protein goes after, hopefully, his recovery from his rhabdomyolysis and acute renal failure. 3. Diabetes mellitus. 4. Hypertension. Blood pressure on the low side. Certainly avoid angiotensin receptor david and LAYO inhibitors on him at this time. 5. COPD. Unit #: [id number] #: [id number] Patient: ANDREW SNOWDEN Thank you very much. Dictated byBrittany Cueva M.D. SEAN/elida TD: 12/07/2016 09:15 JOB #: [id number] CONSULTATION REPORT Page 1 of 1 X Qiana Cueva MD X CONSULTATION REPORT
--- NOTE | ~2016-12-06 | FU ---
[facility] Nutrition Therapy DATE: 12/19/16 Patient: JONATAN GILES Physician: ADENIKE Address: [address] Room/Bed: [address], Zip: [place] [address] Admit Date: 12/06/16 Date of : [birth year] Height: 6 0 Weight: 491 223 NUTRITION MONITORING/FOLLOW-UP: Reason: Follow up Anthropometrics: Ht: 72" Wt: 226.7 kg BMI: 67.8 Wt 12/19: 223 kg Labs: Na+ 133 Cl- 98 Gluc 200 BUN 61 Creat 4.8 Ca++ 8.1 Alb 1.7 Phos 7.6 Accuchecks 176-185 GFR 12.1 Meds: Renvela, levemir, novolin, protonix I&O's: 110/776, No BM documented since admission Skin: DTI to mouth area, no other changes noted Edema: None noted Diet: Consistent carbohhydrate + nectar thick liquids Assessment: Chart reviewed, events noted. Pt remains in ICU, now on 10 L oximizer and CPAP at night. Pt has been advanced to a consistent carbohydrate diet + nectar thick liquids on 12/18. HARNESS INSPECTOR re-evaluated the pt this am and recommended regular consistency foods and thin liquids; however, this has not been ordered by MD yet. RD spoke with the pt at bedside after his breakfast. Pt consumed ~60% of his BF today, stating that his appetite is gradually returning. RD discussed the importance of adequate protein intake while on HD, and the pt is agreeable to Nepro supplements. RD will order. Of note, the pt has elevated phos levels today and MD ordered phos binders. Pt has orders to discharge to once bed available. Pt to have HD tomorrow per MD note. Please see recommendations below. Dx: 1) Stage III obese RT PMH, diet, lifestyle AEB BMI 67.8- ACTIVE 2) Altered nutrient-related lab values RT hx DM, rhado, BOWEN AEB glucose POC 176-185, A1C 8.6, Phos 7.6, BUN 61, creat 4.8, GFR 12.1- ACTIVE Intervention: 1. Diet per HARNESS INSPECTOR 2. Nepro BID 3. Phos diet restriction Monitoring, Evaluation and Goals: 1. EN to provide >80% goal volume x 24 hrs- NO LONGER RELEVANT [facility] Nutrition Therapy DATE: 12/19/16 Patient: JONATAN J CHAN Physician: ADENIKE Address: [address] Room/Bed: [address], Zip: [place] [address] Admit Date: 12/06/16 Date of : [birth year] Height: 6 0 Weight: 491 223 2. Improvement in labs; (BUN, creat, phos, GFR)- NOT MET/ (gluc POC, K+)- IMPROVED 3. Promote wound healing- IN PROGRESS 4. Promote regular GI function- NOT MET (NO BM SINCE ADMISSION) 5. Once appropriate, gradual weight loss towards a healthy BMI range NEW GOALS (IN ADDITION TO ABOVE) 1. Oral intake; consume 50-100% of meals and supplements 2. GI; start bowel regimen, promote regular GI function Recommendations: 1. Advance diet per HARNESS INSPECTOR recommendations (recommended regular consistency foods and thin liquids). Continue consistent carbohydrate restriction, add low phos diet restriction d/t hyperphosphatemia. 2. Nepro BID for supplemental protein. 3. Encourage adequate nutritional intake as needed. 4. Start a bowel regimen d/t no BM since admission. Status: Pt is at mild-moderate nutritional risk. RD will continue to follow up per protocol. Respectfully, GILMAR CRUZ, RD, LD [facility] and Nutrition[facility] Services [facility] cc: client file
--- NOTE | ~2016-12-06 | US77 ---
[facility] A Service of [facility] & [facility] RADIOLOGY TEXT RESULTS PATIENT: JONATAN GILES LOCATION: [address] : [birth year] UNIT #: [id number] AGE: [address]: Neida Palacios MD SEX: M ORDER DR: [id number] [place] [address] [facility]. [place], [place] [address] [id number] MR#: [id number] Acc #: [id number] NAME: JONATAN GILES : 1955 SEX: M STUDY DATE/TIME: 12/06/2016 17:06 UNIT: [facility] ROOM: [facility] STUDY DESCRIPTION: US Kidney Bilateral Complete Attending Physician: Neida Palacios M.D. Ordering Physician: Monserrat Cueva M.D. Primary Care Physician: Raquel Kwon M.D. MEDICAL IMAGING REPORT This report is preliminary unless electronic signature is present EXAM Renal ultrasound INDICATION Acute renal failure for 1 day. TECHNIQUE Sauceda-scale color Doppler sonographic images were obtained through the kidneys and bladder. FINDINGS This is a nondiagnostic study. Visualization of the kidneys and bladder is suboptimal. In fact, the kidneys really cannot be well seen nor can the bladder. CT or MRI could allow for additional assessment of the kidneys. IMPRESSION Nondiagnostic examination due to the patient's body habitus. Dictated by... Rylee Griffin M.D. THIS IS AN ELECTRONICALLY VERIFIED REPORT Rylee Griffin M.D. at 12/07/2016 4:56 PM LUIS/paula TD: 12/07/2016 15:13 JOB #: [id number] MEDICAL IMAGING REPORT Page 1 of 1 COPY
--- NOTE | ~2016-12-06 | CO ---
Unit #: [id number] #: [id number] Patient: ANDREW GILES [id number] [facility] [address] [facility]. [place], [place] [address] [id number] I MR#: [id number] NAME: ANDREW GILES. ROOM: [facility] Age: 61 Sex: M Admission Date: 12/06/2016 : 1955 Attending Physician: Kamala Coon M.D. Primary Care Physician: Raquel Kwon M.D. Consultation Date: 12/13/2016 CONSULTATION REPORT REASON FOR CONSULTATION Severe depression. HISTORY OF PRESENT ILLNESS Mr. Andrew Giles is 61-year-old male seen in room CCU3, room 24, at [facility]. The patient dressed casually in hospital, morbidly obese. The patient weighs 233.5 kg, 514 pounds. The patient has recently gained a lot of weight. Admitted with multiple health conditions. The patient reported that he has been feeling sad, depressed. The patient worked in [employer], and recently there is a lot of weight gain, and increase in medical condition. Diagnosed with rhabdomyolysis, left leg cellulitis, and acute kidney injury. The patient is on 4 liters of oxygen. Reported feeling sad, depressed, but denied any suicidal or homicidal ideation. Denied any psychotic symptom. PAST PSYCHIATRIC HISTORY Unknown for any history of any previous treatment. MEDICAL HISTORY Remarkable for morbid obesity, history of essential hypertension, hyperlipidemia, paroxysmal atrial fibrillation, insulin-dependent diabetes mellitus, COPD, BPH, recurrent cellulitis, lap-band placement, chest tube placement. ALLERGIES To penicillin. MEDICATION HISTORY The patient is on Pro-Air, metformin, Dulera, Norvasc, Ditropan, Lipitor, hydralazine, lisinopril, Apidra, Levemir, Singulair, aspirin, Daliresp. FAMILY HISTORY Unremarkable. SOCIAL HISTORY The patient denied any use of any drugs or alcohol. No history of any substance abuse. REVIEW OF SYSTEMS Complete review of systems is unremarkable except as mentioned above. Vital Signs: 97.4, pulse 89, blood pressure 129/66. MENTAL STATUS EXAMINATION Unit #: [id number] #: [id number] Patient: ANDREW GILES General Appearance: The patient dressed casually. Morbidly obese. Lying comfortably in bed. Seemed very withdrawn, flat. Sad, depressed. Answered questions in short sentences. Attention span/concentration: Fair. Speech: Slow in volume and rate. Oriented in time, place, and person. Mood and affect: Sad, depressed. Thought process: Coherent. Thought content: The patient denied any thoughts of harming self or others. Denied any hallucination. Recent and remote memory: Fair. Language fair. Fund of knowledge fair. Insight and judgment: Fair to slightly impaired. DIAGNOSES PSYCHIATRIC: Major depressive disorder, recurrent, severe, F33.2 SECONDARY: Deferred. MEDICAL: Please refer to H and P. STRESSORS: Psychosocial stressor. ASSESSMENT AND PLAN 1. Supportive psychotherapy and psychoeducation provided to the patient. 2. Educated about benefits and side effects of medication and course and prognosis of illness. 3. Advised to start with Zoloft 25 mg daily with plan to gradually increase the dosage. If needed, consider further adjustment of medication. Please feel free to call if any question. . Dictated by... Huber Lopez/laureano TD: 12/14/2016 10:55 JOB #: [id number] CONSULTATION REPORT Page 1 of 1 X Bony Conway MD CONSULTATION REPORT
--- NOTE | ~2016-12-06 | FU ---
[facility] Nutrition Therapy DATE: 12/11/16 Patient: JONATAN GILES Physician: ADENIKE Address: [address] Room/Bed: [address], Zip: [place] [address] Admit Date: 12/06/16 Date of : 55 Height: 6 0 Weight: 533 242 NUTRITION MONITORING/FOLLOW-UP: Reason: Enteral nutrition follow up Anthropometrics: Ht: 72" Adm wt: 226.7 kg BMI: 67.8 IBW: 80.9 kg Wt 12/11: 242 kg Labs: Cl- 98 Gluc 293 BUN 47 Creat 3.4 Ca++ 7.7 Alb 1.2 SAT 232 ALT 301 Phos 4.8 Accuchecks 168-281 HgbA1C 8.6 GFR 18.4 CK 3661 Meds: Novolog, heparin sodium, NaCl, fentanyl, versed, D5% + levophed I&O's: 2412/4530, No documented BM since admission Skin: Stasis dermatitis right vallecillo Redness to coccyx (per RN report) Edema: Generalized- trunk/ BUE Left leg 2+ Estimated Nutrition Needs: 6428-6466 kcals (22-25 kcals/kg IBW) 121-162 grams protein (1.5-2.0 grams/kg IBW) (Increased protein needs as pt is now on HD/ weeping edema per RN report. May further increase protein once rhadbo is resolved) Diet: NPO Assessment: Chart reviewed, events noted. Pt remains intubated in the ICU on HD today, and is not producing urine per RN report. Renal labs noted above. Of note, the pt's electrolytes have improved, with no major change in BUN and creat. A1C is 8.6%. Recommend to increase the pt's protein needs slightly since he is receiving HD; however it appears he is still in rhabdo based on his CK level today (improving). Ventilator wean trial being attempted this AM. Per pump history, the pt has received 112% of his enteral nutrition goal volume x 24 hrs. Please see recommendations below. Dx: 1) Stage III obese RT PMH, diet, lifestyle AEB BMI 67.8- ACTIVE 2) Inadequate energy intake RT clinical condition, vent dependence AEB NPO x 2 days, possible need for EN- RESOLVING (PT RECEIVING EN AT GOAL RATE) [facility] Nutrition Therapy DATE: 12/11/16 Patient: JONATAN GILES Physician: ADENIKE Address: [address] Room/Bed: [address], Zip: [place] [address] Admit Date: 12/06/16 Date of : 55 Height: 6 0 Weight: 533 242 3) Altered nutrient-related lab values RT hx DM, renal failure AEB glucose POC 168-281, A1C 8.6, BUN 47, Creat 3.4, phos 4.8, GFR 18.4- ACTIVE (WITH UPDATED LAB VALUES) Intervention: 1. EN recs as stated below Monitoring, Evaluation and Goals: 1. EN; consistent with estimated nutritional needs- MET/ IN PROGRESS 2. Improvement in labs; (glucose, phos, GFR, AST- IMPROVED/ IN PROGRESS) (BUN, creat, ALT- unchanged/ not improved) 3. Promote wound healing- IN PROGRESS 4. Once appropriate, gradual weight loss towards a healthy BMI range- IN PROGRESS NEW GOALS (IN ADDITION TO ABOVE): 1. Enteral nutrition; provide >80% goal volume x 24 hrs 2. Improve labs; Phos, glucose, BUN, creat, AST, ALT, GFR 3. GI; promote regular GI function Recommendations: 1. Continue Nepro @ 45 mL/hr as tolerated. Add 30 mL Prostat BID to provide additional protein for a total of 2144 kcals/ 117 grams protein/ 788 mL free H20 Monitor renal labs closely due to increase in protein and pt on HD 2. Optimize the pt's insulin regimen to promote glycemic control. 3. Optimize/ start a bowel regimen, as the pt has not had a documented BM since admission. 4. If the pt is extubated, recommend heart healthy/ 60 gm consistent carbohydrate diet. Status: Pt is at moderate-severe nutritional risk. RD will continue to follow. Respectfully, GILMAR CRUZ RD, LD Food and Nutritional Services [facility] Nutrition Therapy DATE: 12/11/16 Patient: JONATAN GILES Physician: ADENIKE Address: [address] Room/Bed: [facility] [facility], Zip: [place] [address] Admit Date: 12/06/16 Date of : 55 Height: 6 0 Weight: 533 242 cc: client file
--- NOTE | ~2016-12-06 | CR126 ---
[facility] A Service of [facility] & [facility] / [facility] RADIOLOGY TEXT RESULTS PATIENT: JONATAN GILES LOCATION: [address] : [birth year] UNIT #: [id number] AGE: [address]: Neida Palacios MD SEX: M ORDER DR: [id number] [place] [id number] [facility]. [place], [place] [address] [id number] I MR#: [id number] Acc #: [id number] NAME: JONATAN GILES. : 1955 SEX: M STUDY DATE/TIME: 12/07/2016 9:36 UNIT: [facility] ROOM: [facility] STUDY DESCRIPTION: CR Foot Complete Min 3 View Lt Attending Physician: Neida Palacios M.D. Ordering Physician: Physician Non-Staff Primary Care Physician: Raquel Kwon M.D. MEDICAL IMAGING REPORT This report is preliminary unless electronic signature is present EXAM Left foot, 3 views HISTORY Foot and ankle pain for 2 days. No injury. FINDINGS Three views left foot demonstrate normal bone alignment. No fracture, joint space narrowing or dislocation. Mild soft tissue swelling over the dorsum of the forefoot. Very small posterior and plantar calcaneal spurs. IMPRESSION No acute findings. Dictated by... Dawson Meadows M.D. THIS IS AN ELECTRONICALLY VERIFIED REPORT Dawson Meadows M.D. at 12/07/2016 10:31 PM DFL/lisa TD: 12/07/2016 20:18 JOB #: [id number] MEDICAL IMAGING REPORT Page 1 of 1 COPY
--- NOTE | ~2016-12-06 | CR7 ---
[facility] A Service of [facility] & [facility] RADIOLOGY TEXT RESULTS PATIENT: JONATAN GILES LOCATION: [address] : [birth year] UNIT #: [id number] AGE: [address]: Kamala Coon MD SEX: M ORDER DR: [id number] [facility] [address] [facility] [place], [place] [address] [id number] I MR#: [id number] Acc #: [id number] NAME: JONATAN GILES : 1955 SEX: M STUDY DATE/TIME: 12/09/2016 16:15 UNIT: [facility] ROOM: [facility] STUDY DESCRIPTION: CR Abdomen Single AP View Attending Physician: Neida Palacios M.D. Ordering Physician: Ed Saroj Hawthorne M.D. Primary Care Physician: Raquel Kwon M.D. MEDICAL IMAGING REPORT This report is preliminary unless electronic signature is present EXAM Supine radiographs of the abdomen HISTORY Dobbhoff tube placement. FINDINGS Supine radiograph of the abdomen is presented. Study is significantly limited secondary to patient's large body habitus. There is a flexible feeding tube, which extends to level of distal stomach. The visualized bowel gas pattern is normal. Incomplete visualization of the chest shows qdry-mw-chpacqsk cardiac enlargement. Central venous catheters in the superior vena cava. Airspace disease bilateral tfr-hk-wrnux lung zones. Please see today's chest radiograph for further assessment. Bony structures show no acute abnormality. Dictated by... Uli Agee M.D. THIS IS AN ELECTRONICALLY VERIFIED REPORT Uli Agee M.D. at 12/10/2016 3:16 PM TIMUR/jorje TD: 12/09/2016 20:47 JOB #: [id number] MEDICAL IMAGING REPORT Page 1 of 1 COPY
--- NOTE | ~2016-12-06 | CR72 ---
[facility] A Service of [facility] & [facility] / [facility] RADIOLOGY TEXT RESULTS PATIENT: JONATAN GILES LOCATION: [place] [address]24 : 55 UNIT #: [id number] AGE: [address]: Kamala Coon MD SEX: M ORDER DR: [id number] [facility] [address] [facility]. [address] [id number] I MR#: [id number] Acc #: [id number] NAME: JONATAN GILES. : 1955 SEX: M STUDY DATE/TIME: 12/19/2016 4:51 UNIT: [facility] ROOM: [facility] STUDY DESCRIPTION: CR Chest Single View Portable Attending Physician: Kamala Coon M.D. Ordering Physician: Madeline Mills M.D. Primary Care Physician: Raquel Kwon M.D. MEDICAL IMAGING REPORT This report is preliminary unless electronic signature is present EXAM Portable chest HISTORY Shortness of air for 2 weeks. FINDINGS There has been no significant change compared to yesterday. Persistent dense consolidation or atelectasis in the right base and small to moderate-sized right pleural effusion. The cardiac and mediastinal contours are stable. Minimal linear atelectasis or scarring in the left base. No new infiltrates. Dictated by... Dawson Meadows M.D. THIS IS AN ELECTRONICALLY VERIFIED REPORT Dawson Meadows M.D. at 12/19/2016 10:07 PM LYNNL/sharee TD: 12/19/2016 08:13 JOB #: [id number] MEDICAL IMAGING REPORT Page 1 of 1 COPY
--- NOTE | ~2016-12-06 | CR72 ---
[facility] A Service of [facility] & [facility] RADIOLOGY TEXT RESULTS PATIENT: JONATAN GILES LOCATION: [place] [address] : 55 UNIT #: [id number] AGE: [address]: Kamala Coon MD SEX: M ORDER DR: [id number] [facility] [address] [facility]. [place], [place] [address] [id number] I MR#: [id number] Acc #: [id number] NAME: JONATAN GILES. : 1955 SEX: M STUDY DATE/TIME: 12/10/2016 3:40 UNIT: [facility] ROOM: [facility] STUDY DESCRIPTION: CR Chest Single View Portable Attending Physician: Kamala Coon M.D. Ordering Physician: Madeline Mills M.D. Primary Care Physician: Raquel Kwon M.D. MEDICAL IMAGING REPORT This report is preliminary unless electronic signature is present EXAM Chest x-ray 12/10/2016 HISTORY Respiratory failure. Patient on ventilator. Follow up cardiopulmonary status and support equipment position. TECHNIQUE AP portable chest x-ray. Limited by patient body habitus. FINDINGS The examination shows no significant change since yesterday. Lung volumes are very low in part related to patient body habitus, and there is dense infiltrate or atelectasis in both lung bases. Moderately severe cardiomegaly and probable mild vascular congestion without radiographic change. Endotracheal tube and right IJ vascular catheters in good position. Feeding tube below the diaphragm. IMPRESSION Stable portable chest radiograph, unchanged since yesterday. Support equipment in good position. Dictated by... Hermilo Staley M.D. THIS IS AN ELECTRONICALLY VERIFIED REPORT Hermilo Staley M.D. at 12/10/2016 8:56 PM LESTER/jose elias TD: 12/10/2016 10:06 JOB #: [id number] [facility] A Service of [facility] & [facility] RADIOLOGY TEXT RESULTS PATIENT: JONATAN GILES LOCATION: [facility] CICCU3-24 : 55 UNIT #: [id number] AGE: [address]: Kamala Coon MD SEX: M ORDER DR: MEDICAL IMAGING REPORT Page 1 of 1 COPY
--- NOTE | ~2016-12-06 | FU ---
[facility] Nutrition Therapy DATE: 12/17/16 Patient: JONATAN GILES Physician: ADENIKE Address: [address] Room/Bed: [address], Zip: [place] [address] Admit Date: 12/06/16 Date of : 55 Height: 6 0 Weight: 477 216.5 NUTRITION MONITORING/FOLLOW-UP: Reason: RN REQUEST FOR ORDERING SUPPLEMENT RD ORDERED NEPRO SHAKE W/LUNCH DAILY. RD TO FOLLOW Respectfully, Ubaldo Rios RD, LD Food and Nutritional Services [facility] cc: client file
--- NOTE | ~2016-12-06 | CR72 ---
[facility] A Service of [facility] & [facility] RADIOLOGY TEXT RESULTS PATIENT: JONATAN GILES LOCATION: [place] [address]24 : 55 UNIT #: [id number] AGE: [address]: Kamala Coon MD SEX: M ORDER DR: [id number] [facility] [address] [facility]. [place], [place] [address] [id number] I MR#: [id number] Acc #: [id number] NAME: JONATAN GILES : 1955 SEX: M STUDY DATE/TIME: 12/20/2016 4:42 UNIT: [facility] ROOM: [facility] STUDY DESCRIPTION: CR Chest Single View Portable Attending Physician: Kamala Coon M.D. Ordering Physician: Madeline Mills M.D. Primary Care Physician: Raquel Kwon M.D. MEDICAL IMAGING REPORT This report is preliminary unless electronic signature is present EXAM Portable chest HISTORY Shortness of air for 2 weeks. FINDINGS Compared to yesterday there is improved aeration of the right base with probable interval decrease in right pleural effusion. New mild linear atelectasis in the left midlung and left base. Stable cardiac enlargement. No new infiltrates in the remainder of the lungs. Dictated by... Dawson Meadows M.D. THIS IS AN ELECTRONICALLY VERIFIED REPORT Dawson Meadows M.D. at 12/20/2016 6:27 AM KAYLAN/julia TD: 12/20/2016 05:07 JOB #: [id number] MEDICAL IMAGING REPORT Page 1 of 1 COPY
--- NOTE | ~2016-12-06 | CO ---
Unit #: [id number] #: [id number] Patient: JONATAN GILES [id number] [facility] [address] [facility]. [place], [place] [address] [id number] I MR#: [id number] NAME: JONATAN GILES. ROOM: [facility] Age: 61 Sex: M Admission Date: 12/06/2016 : 1955 Attending Physician: Kamala Coon M.D. Primary Care Physician: Raquel Kwon M.D. Consultation Date: 12/14/2016 CONSULTATION REPORT REASON FOR CONSULTATION Followup. DISCUSSION Mr. Morales is a 61-year-old male seen in CCU 3, bed 24 on 12/14/2016 at [facility]. Patient dressed in hospital attire, lying comfortably in bed. Seemed sad, depressed, withdrawn. Patient reports still feeling sad, depressed but compliant, cooperative. No agitation. Denied any thoughts of harming self or others. Vital signs are 98.4, 78, 15, 150/60, oxygen saturation 98%. REVIEW OF SYSTEMS A complete review of systems unremarkable except as mentioned above. MENTAL STATUS EXAMINATION General appearance: Patient morbidly obese, over 500 pounds. Dressed casually. Attention span and concentration fair. Speech irregular rate, slow in volume and rate. Oriented in patient, person. Mood and affect sad, dysphoric, flat. Thought process is coherent. Thought content: The patient denied any thoughts of harming self or others or any hallucination, but sad, depressed. Recent and remote memory fair. Language fair. Fund of knowledge fair. Insight and judgment fair to slightly impaired. DIAGNOSIS PSYCHIATRIC: Major depressive disorder, recurrent, severe, F33.2 ASSESSMENT AND PLAN 1. Supportive psychotherapy and psychoeducation provided to patient. 2. Educated about benefits and side effects of medication and course and prognosis of illness. 3. Will continue to follow. Please feel free to call if any questions, . Dictated by..Mare Conway M.D. ISAK/indiana TD: 12/16/2016 13:29 Unit #: [id number] #: [id number] Patient: JONATAN GILES JOB #: [id number] CONSULTATION REPORT Page 1 of 1 X Bony Conway MD CONSULTATION REPORT
--- NOTE | ~2016-12-06 | CR72 ---
[facility] A Service of [facility] & [facility] RADIOLOGY TEXT RESULTS PATIENT: JONATAN GILES LOCATION: [address] : 55 UNIT #: [id number] AGE: [address]: Neida Palacios MD SEX: M ORDER DR: [id number] [facility] [address] [place], [place] [address] [id number] I MR#: [id number] Acc #: [id number] NAME: JONATAN GILES. : 1955 SEX: M STUDY DATE/TIME: 12/06/2016 02:06 UNIT: [facility] ROOM: [facility] STUDY DESCRIPTION: CR Chest Single View Portable Attending Physician: Neida Palacios M.D. Ordering Physician: Bryan Bella M.D. Primary Care Physician: Raquel Kwon M.D. MEDICAL IMAGING REPORT This report is preliminary unless electronic signature is present EXAM Portable chest 12/06/2016 at 0206 INDICATION Shortness of air and weakness after a fall 2 days ago. FINDINGS AP views of the chest are compared with 08/30/2015. The exam is degraded due to the patient's morbid obesity. The heart remains enlarged. There is some mild vascular congestion. Lungs are clear. No pneumothorax. Patient has prominent bilateral epicardial fat pads as seen on the chest CT from 2013. IMPRESSION Stable cardiomegaly with some mild vascular congestion. Dictated by... Joseph Brandt Jr., M.D. THIS IS AN ELECTRONICALLY VERIFIED REPORT Joseph Brandt Jr., M.D. at 12/07/2016 12:52 AM ZACH/jose elias TD: 12/06/2016 08:43 JOB #: [id number] MEDICAL IMAGING REPORT Page 1 of 1 COPY
--- NOTE | ~2016-12-06 | CR72 ---
[facility] A Service of [facility] & [facility] RADIOLOGY TEXT RESULTS PATIENT: JONATAN GILES LOCATION: [address] : [birth year] UNIT #: [id number] AGE: [address]: Kamala Coon MD SEX: M ORDER DR: [id number] [facility] [address] [facility]. [place], [place] [address] [id number] I MR#: [id number] Acc #: [id number] NAME: JONATAN GILES. : 1955 SEX: M STUDY DATE/TIME: 12/12/2016 5:34 UNIT: [facility] ROOM: [facility] STUDY DESCRIPTION: CR Chest Single View Portable Attending Physician: Kamala Coon M.D. Ordering Physician: Madeline Mills M.D. Primary Care Physician: Raquel Kwon M.D. MEDICAL IMAGING REPORT This report is preliminary unless electronic signature is present EXAM Frontal chest 12/12/2016 INDICATION 61-year-old male with septic shock, short of air, rhabdomyolysis. Symptoms since the 06 of December. Compartment syndrome of the left leg and thigh status post release procedure. Hypertension. Atrial fibrillation. TECHNIQUE Frontal chest compared with 12/10/2016. FINDINGS Preexisting tubes and lines appear to be in satisfactory position to the extent visualized. The patient appears to have been extubated in the interval. The tip of the enteric tube is below the diaphragm but not included in the field of view. The heart is enlarged. There is a right-sided effusion and compressive atelectasis or pneumonia in the right lung base. Interstitial prominence throughout both lungs may reflect mild vascular congestion. No distinct pneumothorax. Exam degraded by body habitus and exposure factors. IMPRESSION 1. Cardiomegaly with probable mild vascular congestion. No pneumothorax. 2. The patient appears to have been extubated in the interval. 3. There is a right-sided effusion with compressive atelectasis or pneumonia in the right lung base. Dictated by... New Sexton M.D. THIS IS AN ELECTRONICALLY VERIFIED REPORT [facility] A Service of [facility] & [facility] RADIOLOGY TEXT RESULTS PATIENT: JONATAN GILES LOCATION: [address] : [birth year] UNIT #: [id number] AGE: [address]: Kamala Coon MD SEX: M ORDER DR: New Sexton M.D. at 12/12/2016 12:17 PM DEBI/wilmer TD: 12/12/2016 09:26 JOB #: [id number] MEDICAL IMAGING REPORT Page 1 of 1 COPY
--- NOTE | ~2016-12-06 | FU ---
[facility] Nutrition Therapy DATE: 12/14/16 Patient: JONATAN GILES Physician: ADENIKE Address: [address] Room/Bed: [address], Zip: [place] [address] Admit Date: 12/06/16 Date of : 55 Height: 6 0 Weight: 504 228.7 NUTRITION MONITORING/FOLLOW-UP: Reason: Enteral nutrition follow-up Admitting dx: 61 y/o male admitted s/p fall with rhabdo, BOWEN, L leg compartment syndrome Anthropometrics: Ht: 72", admission wt: 227-258 kg, current wt: 228.7 kg, BMI: 67.8 (stage III obese; based on admission wt of 227 kg), IBW: 80.9 kg *Note initial weight fluctution due to fluid gain and losses Labs: K+ 5.6, Phos 7.3, BUN 56, creat 4.4, glucose 381, POC 208-342, AST 55, ALT 103, Na/Mg WNL, CK 1062 (trending down) Meds: PPI, Novolog (regular + high SSI), Levemir *Off pressors and sedation GI: Last BM unknown (no BM since admission?) Skin: weeping L leg fasciotomy site (surgical wound healing well per RN), no edema Estimated Nutrition Needs: 7378-1626 kcals/day (22-25 kcals/kg IBW) 81-121 g protein/day (1-1.5 g/kg IBW) *Protein needs decreased until rhabdo is resolved Once rhabdo resolved: 121-202 g protein/day (1.5-2.5 g/kg IBW) Fluids per MD Assessment: Chart reviewed, events noted. Patient was extubated 12/11, is now on 12L oxymizer during the day and CPAP at night. He is currently receiving HD so I am unable to view his feeding pump history to assess his nutrition goal, however Nepro is running at goal rate of 45 ml/hr which has been consistent over the past few days. Yesterday the feeding pump history was assessed which showed the patient had received 104% goal volume x 24 hours. He is also receiving Prostat BID which was added to his regimen on 12/11. His kidney function appears worse given his current labs, however these were drawn before dialysis today. Nursing notes tolerance of EN with no GRV or abdominal issues. No BM is documented since admission. Note weight fluctuations since admission due to HD and variable fluid retention. Nursing also notes the patient's surgical wound is healing well. Of note, Dr. Conway assessed him yesterday due to severe depression and the patient verbalizing to just let him . Rhabdo appears to be resolving, CK continues to trend down however is not WNL yet. He is currently not on any sedation or pressors. COOLING MACHINE OPERATOR to evaluate the patient this afternoon after HD. He is getting accucheks q 6 hours and may need further insulin regimen adjustment. See nutrition dx, goals and recs as stated below. Will continue to follow hospital course. [facility] Nutrition Therapy DATE: 12/14/16 Patient: JONATAN GILES Physician: ADENIKE Address: [facility] [address] Room/Bed: [address], Zip: [place] [address] Admit Date: 12/06/16 Date of : 55 Height: 6 0 Weight: 504 228.7 Dx: 1) Stage III obese r/t PMH, diet, lifestyle AEB BMI 67.8 - ACTIVE 2) Inadequate energy intake r/t clinical condition, vent dependence AEB NPO x 2 days, possible need for EN - RESOLVED (has been tolerating EN @ goal rate) 3) Altered nutrition related lab values r/t hx DM, rhabdo, BOWEN AEB glucose POC 208-342, A1C 8.6, K+ 5.6, Phos 7.3, BUN 56, creat 4.4, GFR 13.5 - ACTIVE (with updated lab values) Intervention: See recs below Monitoring, Evaluation and Goals: 1. EN to provide > 80% goal volume x 24 hrs - MET (received 104% goal volume per 8/24 pump history, tolerating EN @ goal) 2. Improvement in labs - IN PROGRESS (see above lab values) 3. Promote wound healing - IN PROGRESS (RN states surgical wound is healing well) 4. Promote regular GI function - NOT MET/IN PROGRESS (no BM documented since admission) 5. Once appropriate; gradual weight loss towards a healthy BMI range - NOT YET APPROPRIATE No new goals Monitor: per protocol, criteria to determine if above goals met Recommendations: 1. Continue current enteral nutrition regimen via DHT: Nepro @ 45 ml/hr + 30 ml Prostat BID to provide 1140 ml, 2144 kcals, 117 g protein, 788 ml free water. Free water flushes per MD. Will continue to monitor renal function and lytes. 2. Once rhabdo is resolved and kidney function improves consider adding an additional 30 ml Prostat (TID total) to the patient's current EN regimen to help meet increased protein needs. This will add an additional 100 kcals and 15 g protein to the above calculations. 3. PO diet per COOLING MACHINE OPERATOR only once appropriate. Add 75g carb restriction. 4. Continue to optimize insulin regimen to promote improved glycemic control. 5. Wound care prn. 6. Consider adding a bowel regimen. No documented BM since admission. Status: Moderate nutrition risk [facility] Nutrition Therapy DATE: 12/14/16 Patient: JONATAN GILES Physician: ADENIKE Address: [address] [place] [address] Room/Bed: [address], Zip: [place] [address] Admit Date: 12/06/16 Date of : 55 Height: 6 0 Weight: 504 228.7 Respectfully, Che Macario RD, LD Food and Nutritional Services [facility] cc: client file
[~2016-12-06 00:32] MED LIST: ACETAMINOPHEN PO; ACETAMINOPHEN PR; ACETAMINOPHEN325 MG PO; ADVAIR 2501 DISK W/D PO; ALBUTEROL17 GM IH; ALBUTEROL17 GM INH; ALPRAZOLAM PO; APIDRA (NF100 UNITS/ SUBQ; APIDRA SOL100 UNIT/1 SUBQ; ASPIRIN81 MG PO; AVANDIA; BACTROBAN22 GM TP; BYETTA PO; CHONDROITIN PO; CIPRO250 MG PO; CLEOCIN PO; COLACE PO; CRESTOR PO; CRESTOR10 MG PO; DALIRESP500 MCG PO; DIFLUCAN100 MG PO; DITROPAN X15 MG/BOTT PO; DITROPAN XL PO; DULERA 100 MCG/13 GM INH; DULERA 200 MCG/13 GM IH; FISH OIL 1,0001 CAP PO; FISH OIL 1,001000 M1 PO; GARLIC PO; GINKO BILOBA PO; GLUCOPHAGE500 MG PO; GLUCOSAMINE PO; GLUCOSAMINE-CHO1 CA1 PO; GLUCOTROL; GLUCOTROL PO; HCTZ; HUMALOG MIX 75/10 ML SUBQ; HUMALOG MIX 75/23 ML SUBQ; HYDRALAZINE HCL25 MG PO; HYDROCHLOROTHIA25 MG PO; JARDIANCE25 MG PO; KLOR-CON PO; LANTUS100 U/ML SUBQ; LASIX PO; LEVAQUIN PO; LEVAQUIN750 M1 PO; LIPITOR40 MG PO; LISINOPRIL PO; LISINOPRIL10 MG PO; LISINOPRIL20 MG PO; LORTAB 10/500 T1 TAB PO; METFORMIN; METFORMIN HCL1000 M1 PO; METFORMIN PO; MILK OF MAGNESIA PO; MINOCYCLINE HC100 M1 PO; MONTELUKAST SOD10 MG PO; MUCOMYST4 ML 20% PO; MULTI-VIT/MIN P1 TAB PO; NAC600 MG PO; NILSTAT PO; NORVASC PO; NORVASC10 MG PO; NOVOLOG100 U/ML SUBQ; PREDNISOLONE5 MG PO; PREDNISONE10 MG PO; PROAIR HFA8.5 GM IH; PROAIR HFA8.5 GM INH; PROZAC; PROZAC PO; SINGULAIR; SINGULAIR PO; SPIRIVA18 MCG INH; TOPIRAMATE100 MG PO; TRAMADOL HCL50 M1 PO; ULTRAM PO; VICODIN PO; VITAMIN D50000 UNIT PO; ZESTRIL40 MG PO; ZYVOX600 MG PO; [UNRECOGNIZED DRUG - OTHER]; [UNRECOGNIZED DRUG - OTHER] PO; [UNRECOGNIZED DRUG - OTHER] PO
[2016-12-06 01:31] LABS: ARTERIAL BLOOD GAS CARBOXY HB 0.5 %sat (0.0-9.0); ARTERIAL BLOOD GAS HCO3 19.8 mmol/L; ARTERIAL BLOOD GAS MET HB 0.6 %sat (0.0-2.0); ARTERIAL BLOOD GAS PCO2 34.2 mmHg (35.0-45.0); ARTERIAL BLOOD GAS PO2 93.2 mmHg (80.0-100); ARTERIAL BLOOD GAS pH 7.371 (7.350-7.450)
[2016-12-06 01:32] LABS: ARTERIAL BLOOD GAS ALLEN TEST NORMAL; ARTERIAL DRAW? YES
[2016-12-06 01:33] LABS: ARTERIAL BLOOD GAS ART SITE LEFT RADIAL; ARTERIAL BLOOD GAS DELIVERY NASAL CANNULA
[2016-12-06 01:37] LABS: BASOPHIL% 0.1 % (0-2.5); EOSINOPHIL% 0.1 % (0.0-7.0); HEMOGLOBIN 15.7 gm/dL (13.0-16.0); LYMPHOCYTE# 0.3 X10e3 (1.0-3.5); LYMPHOCYTE% 4.9 % (17.0-45.0); MEAN CORPUSCULAR HEMOGLOBIN 29.5 PG (28-34); MEAN CORPUSCULAR HGB CONC 32.1 g/dL (30-36); MEAN PLATELET VOLUME 9.3 FL (6.5-11.5); MONOCYTE# 0.5 X10e3 (0-1.0); NEUTROPHIL# 5.7 X10e3 (1.5-7.1); NEUTROPHIL% 87.9 % (40-75); PLATELET COUNT 188 X10e3 (140-420); RED BLOOD COUNT 5.33 X10e (3.90-5.60); RED CELL DISTRIBUTION WIDTH 15.1 % (11.0-15.5); WHITE BLOOD COUNT 6.5 X10e3 (4.0-10.5)
[2016-12-06 01:40] LABS: DIFF IND NO
[2016-12-06 02:59] LABS: POC - CKMB >80.0 ng/mL (0.0-7.9); POC - TROPONIN 0.09 ng/mL (<=0.05)
[2016-12-06 03:17] LABS: INR 1.2; PROTHROMBIN TIME (PATIENT) 12.7 SECONDS (10.0-11.7)
[2016-12-06 04:07] LABS: ALBUMIN SERUM 1.9 g/dL (3.5-5.0); BILIRUBIN, DIRECT 0.2 mg/dL (0.0-0.2); BILIRUBIN,INDIRECT 0.7 mg/dL (0.0-0.9); BILIRUBIN,TOTAL 0.9 mg/dL (0.2-2.0); BUN/CREATININE RATIO 9.31; CALCIUM SERUM 8.2 mg/dL (8.4-10.2); CREATININE SERUM 2.9 mg/dL (0.6-1.4); GLOM FILT RATE Estimated 22.3 mL/min (>60); POTASSIUM 5.2 mmol/L (3.5-5.1); PROTEIN TOTAL SERUM 5.3 g/dL (6.0-8.3)
[2016-12-06 04:39] LABS: %MB 0.3 % (0.0-4.0); MB 64.3 ng/ml
[2016-12-06 09:52] LABS: URINE SOURCE CLEAN CATCH
[2016-12-06 10:00] LABS: URINE APPEARANCE CLOUDY; URINE BLOOD 3+ (NEG); URINE COLOR DK YELLOW; URINE GLUCOSE 100 MG/DL (NEG); URINE KETONE NEG (NEG); URINE LEUKOCYTE ESTERASE NEG (NEG); URINE NITRATE NEG (NEG); URINE PROTEIN 3+ (NEG); URINE SPECIFIC GRAVITY 1.035 (1.003-1.035); URINE UROBILINOGEN 0.2 MG/DL (NEG)
[2016-12-06 10:02] LABS: URINE BACTERIA AUWI NEG (NEGATIVE); URINE SQUAMOUS EPITHELIAL CELL MANY /[HPF]
[2016-12-06 10:23] LABS: U HYALINE CASTS AUWI 0-2 /[LPF]; URINE BILIRUBIN NEG (NEG)
[2016-12-06 10:24] LABS: URINE GRANULAR CAST 0-2 /[HPF]
[2016-12-06 10:26] LABS: URINE MUCUS PRESENT
[2016-12-06 10:27] LABS: UWBCS1 AUWI 0-2 (0-5)
[2016-12-06 10:35] LABS: URINE WAXY CAST 0-2 /[HPF]
[2016-12-06 10:43] LABS: URINE AMORPHOUS SEDIMENT AMORP URATES
[2016-12-06 13:59] LABS: BASOPHIL% 0.2 % (0-2.5); EOSINOPHIL% 0.5 % (0.0-7.0); HEMATOCRIT 39.9 % (38.0-50.0); LYMPHOCYTE# 0.5 X10e3 (1.0-3.5); LYMPHOCYTE% 11.9 % (17.0-45.0); MEAN CORPUSCULAR HGB CONC 32.6 g/dL (30-36); MEAN PLATELET VOLUME 9.5 FL (6.5-11.5); MONOCYTE# 0.4 X10e3 (0-1.0); MONOCYTE% 9.1 % (3.0-12.0); NEUTROPHIL# 3.1 X10e3 (1.5-7.1); NEUTROPHIL% 78.3 % (40-75); PLATELET COUNT 201 X10e3 (140-420); RED BLOOD COUNT 4.49 X10e (3.90-5.60)
[2016-12-06 14:00] LABS: DIFF IND YES; MEAN CELL VOLUME 88.9 FL (83-96)
[2016-12-06 14:18] LABS: ARTERIAL BLD GAS O2 SATURATION 95.7 % (90.0-100.0); ARTERIAL BLOOD GAS CARBOXY HB 0.6 %sat (0.0-9.0); ARTERIAL BLOOD GAS HCO3 19.6 mmol/L; ARTERIAL BLOOD GAS MET HB 0.9 %sat (0.0-2.0)
[2016-12-06 14:21] LABS: ARTERIAL BLOOD GAS ART SITE RIGHT BRACHIAL; ARTERIAL BLOOD GAS DELIVERY VENT; ARTERIAL BLOOD GAS PCO2 55.7 mmHg (35.0-45.0); ARTERIAL BLOOD GAS VENT MODE A/C; ARTERIAL BLOOD GAS pH 7.154 (7.350-7.450); ARTERIAL DRAW? YES
[2016-12-06 14:58] LABS: ALBUMIN SERUM 1.7 g/dL (3.5-5.0); BILIRUBIN,TOTAL 0.3 mg/dL (0.2-2.0); CALCIUM SERUM 7.2 mg/dL (8.4-10.2); GLOM FILT RATE Estimated 15.1 mL/min (>60); POTASSIUM 5.5 mmol/L (3.5-5.1); PROTEIN TOTAL SERUM 5.8 g/dL (6.0-8.3)
[2016-12-06 15:08] LABS: PLATELET ESTIMATE NORMAL (NORMAL); POLYCHROMASIA SL
[2016-12-06 15:16] LABS: %MB 0.2 % (0.0-4.0)
[2016-12-06 19:04] LABS: ARTERIAL BLOOD GAS CARBOXY HB 0.3 %sat (0.0-9.0); ARTERIAL BLOOD GAS HCO3 16.9 mmol/L; ARTERIAL BLOOD GAS PCO2 38.2 mmHg (35.0-45.0); ARTERIAL BLOOD GAS pH 7.254 (7.350-7.450)
[2016-12-06 19:06] LABS: ARTERIAL BLOOD GAS ART SITE LEFT BRACHIAL; ARTERIAL BLOOD GAS DELIVERY VENT; ARTERIAL BLOOD GAS VENT MODE AC; ARTERIAL DRAW? YES
[2016-12-07 04:30] LABS: ARTERIAL BLD GAS O2 SATURATION 97.9 % (90.0-100.0); ARTERIAL BLOOD GAS CARBOXY HB 0.4 %sat (0.0-9.0); ARTERIAL BLOOD GAS HCO3 23.7 mmol/L; ARTERIAL BLOOD GAS MET HB 1.2 %sat (0.0-2.0); ARTERIAL BLOOD GAS pH 7.276 (7.350-7.450)
[2016-12-07 04:34] LABS: ARTERIAL BLOOD GAS PCO2 51.1 mmHg (35.0-45.0); ARTERIAL DRAW? YES
[2016-12-07 04:35] LABS: ARTERIAL BLOOD GAS ALLEN TEST NORMAL; ARTERIAL BLOOD GAS ART SITE RIGHT RADIAL; ARTERIAL BLOOD GAS DELIVERY VENT; ARTERIAL BLOOD GAS VENT MODE AC
[2016-12-07 05:54] LABS: BASOPHIL% 0.2 % (0-2.5); EOSINOPHIL# 0.1 X10e3 (0-0.7); EOSINOPHIL% 1.5 % (0.0-7.0); HEMATOCRIT 33.7 % (38.0-50.0); HEMOGLOBIN 11.2 gm/dL (13.0-16.0); LYMPHOCYTE# 0.4 X10e3 (1.0-3.5); LYMPHOCYTE% 6.1 % (17.0-45.0); MEAN CELL VOLUME 88.2 FL (83-96); MEAN CORPUSCULAR HEMOGLOBIN 29.4 PG (28-34); MEAN CORPUSCULAR HGB CONC 33.3 g/dL (30-36); MEAN PLATELET VOLUME 9.9 FL (6.5-11.5); MONOCYTE# 0.3 X10e3 (0-1.0); MONOCYTE% 4.8 % (3.0-12.0); NEUTROPHIL# 6.1 X10e3 (1.5-7.1); NEUTROPHIL% 87.4 % (40-75); PLATELET COUNT 170 X10e3 (140-420); RED BLOOD COUNT 3.82 X10e (3.90-5.60)
[2016-12-07 05:55] LABS: DIFF IND NO
[2016-12-07 06:35] LABS: ALBUMIN SERUM 1.8 g/dL (3.5-5.0); BILIRUBIN,TOTAL 0.6 mg/dL (0.2-2.0); BUN/CREATININE RATIO 8.57; CALCIUM SERUM 7.1 mg/dL (8.4-10.2); CREATININE SERUM 3.5 mg/dL (0.6-1.4); GLOM FILT RATE Estimated 17.8 mL/min (>60); MAGNESIUM 1.7 mg/dL (1.6-3.0); PHOSPHOROUS 6.5 mg/dL (2.5-4.6); POTASSIUM 4.5 mmol/L (3.5-5.1); PROTEIN TOTAL SERUM 5.1 g/dL (6.0-8.3)
[2016-12-07 19:47] LABS: BUN/CREATININE RATIO 7.4; CREATININE SERUM 2.7 mg/dL (0.6-1.4); GLOM FILT RATE Estimated 24.3 mL/min (>60); MAGNESIUM 1.9 mg/dL (1.6-3.0); PHOSPHOROUS 3.8 mg/dL (2.5-4.6); POTASSIUM 4.3 mmol/L (3.5-5.1)
[2016-12-08 03:54] LABS: PARTIAL THROMBOPLASTIN TIME 38.1 SECONDS (23.5-31.3); PROTHROMBIN TIME (PATIENT) 10.9 SECONDS (10.0-11.7)
[2016-12-08 04:02] LABS: ARTERIAL BLD GAS O2 SATURATION 92.2 % (90.0-100.0); ARTERIAL BLOOD GAS CARBOXY HB 0.8 %sat (0.0-9.0); ARTERIAL BLOOD GAS HCO3 32.2 mmol/L; ARTERIAL BLOOD GAS MET HB 0.9 %sat (0.0-2.0); ARTERIAL BLOOD GAS pH 7.358 (7.350-7.450)
[2016-12-08 04:04] LABS: ARTERIAL BLOOD GAS ALLEN TEST NORMAL; ARTERIAL BLOOD GAS ART SITE RIGHT RADIAL; ARTERIAL BLOOD GAS DELIVERY VENT; ARTERIAL BLOOD GAS PCO2 57.2 mmHg (35.0-45.0); ARTERIAL BLOOD GAS PO2 69.5 mmHg (80.0-100); ARTERIAL BLOOD GAS VENT MODE AC; ARTERIAL DRAW? YES
[2016-12-08 04:15] LABS: BASOPHIL% 0.4 % (0-2.5); EOSINOPHIL# 0.1 X10e3 (0-0.7); EOSINOPHIL% 1.5 % (0.0-7.0); HEMATOCRIT 33.5 % (38.0-50.0); HEMOGLOBIN 11.4 gm/dL (13.0-16.0); LYMPHOCYTE# 0.3 X10e3 (1.0-3.5); LYMPHOCYTE% 3.1 % (17.0-45.0); MEAN CORPUSCULAR HEMOGLOBIN 29.6 PG (28-34); MEAN PLATELET VOLUME 9.9 FL (6.5-11.5); MONOCYTE# 0.1 X10e3 (0-1.0); MONOCYTE% 1.6 % (3.0-12.0); NEUTROPHIL% 93.4 % (40-75); PLATELET COUNT 170 X10e3 (140-420); RED BLOOD COUNT 3.84 X10e (3.90-5.60); RED CELL DISTRIBUTION WIDTH 14.8 % (11.0-15.5); WHITE BLOOD COUNT 8.6 X10e3 (4.0-10.5)
[2016-12-08 04:18] LABS: DIFF IND NO
[2016-12-08 04:22] LABS: ALBUMIN SERUM 1.7 g/dL (3.5-5.0); BILIRUBIN,TOTAL 0.6 mg/dL (0.2-2.0); BUN/CREATININE RATIO 6.66; CREATININE SERUM 2.1 mg/dL (0.6-1.4); MAGNESIUM 1.7 mg/dL (1.6-3.0); PHOSPHOROUS 2.8 mg/dL (2.5-4.6); POTASSIUM 4.4 mmol/L (3.5-5.1); PROTEIN TOTAL SERUM 5.7 g/dL (6.0-8.3)
[2016-12-08 12:27] LABS: BUN/CREATININE RATIO 6.47; CREATININE SERUM 1.7 mg/dL (0.6-1.4); GLOM FILT RATE Estimated 42.6 mL/min (>60); MAGNESIUM 1.8 mg/dL (1.6-3.0); PHOSPHOROUS 2.3 mg/dL (2.5-4.6); POTASSIUM 4.7 mmol/L (3.5-5.1)
[2016-12-08 14:18] LABS: ARTERIAL BLD GAS O2 SATURATION 94.5 % (90.0-100.0); ARTERIAL BLOOD GAS ART SITE RIGHT RADIAL; ARTERIAL BLOOD GAS CARBOXY HB 0.5 %sat (0.0-9.0); ARTERIAL BLOOD GAS HCO3 33.7 mmol/L; ARTERIAL BLOOD GAS MET HB 0.8 %sat (0.0-2.0); ARTERIAL BLOOD GAS PCO2 66.3 mmHg (35.0-45.0); ARTERIAL BLOOD GAS PO2 81.7 mmHg (80.0-100); ARTERIAL BLOOD GAS pH 7.314 (7.350-7.450); ARTERIAL DRAW? YES
[2016-12-08 14:19] LABS: ARTERIAL BLOOD GAS DELIVERY VENT; ARTERIAL BLOOD GAS VENT MODE AC
[2016-12-08 19:29] LABS: BUN/CREATININE RATIO 5.55; CREATININE SERUM 1.8 mg/dL (0.6-1.4); GLOM FILT RATE Estimated 39.7 mL/min (>60); MAGNESIUM 2.1 mg/dL (1.6-3.0); PHOSPHOROUS 2.7 mg/dL (2.5-4.6); POTASSIUM 4.8 mmol/L (3.5-5.1)
[2016-12-09 04:28] LABS: ARTERIAL BLD GAS O2 SATURATION 94.8 % (90.0-100.0); ARTERIAL BLOOD GAS CARBOXY HB 0.4 %sat (0.0-9.0); ARTERIAL BLOOD GAS HCO3 28.4 mmol/L; ARTERIAL BLOOD GAS pH 7.351 (7.350-7.450)
[2016-12-09 04:30] LABS: ARTERIAL BLOOD GAS ALLEN TEST NORMAL; ARTERIAL BLOOD GAS ART SITE RIGHT RADIAL; ARTERIAL BLOOD GAS DELIVERY VENT; ARTERIAL BLOOD GAS PCO2 51.3 mmHg (35.0-45.0); ARTERIAL BLOOD GAS PO2 75.5 mmHg (80.0-100); ARTERIAL BLOOD GAS VENT MODE AC; ARTERIAL DRAW? YES
[2016-12-09 04:44] LABS: BASOPHIL% 0.1 % (0-2.5); EOSINOPHIL% 0.3 % (0.0-7.0); HEMATOCRIT 32.2 % (38.0-50.0); HEMOGLOBIN 10.6 gm/dL (13.0-16.0); LYMPHOCYTE# 0.6 X10e3 (1.0-3.5); LYMPHOCYTE% 4.8 % (17.0-45.0); MEAN CELL VOLUME 87.9 FL (83-96); MEAN CORPUSCULAR HEMOGLOBIN 28.8 PG (28-34); MEAN CORPUSCULAR HGB CONC 32.8 g/dL (30-36); MEAN PLATELET VOLUME 10.2 FL (6.5-11.5); MONOCYTE# 0.5 X10e3 (0-1.0); MONOCYTE% 3.9 % (3.0-12.0); NEUTROPHIL# 10.7 X10e3 (1.5-7.1); NEUTROPHIL% 90.9 % (40-75); PLATELET COUNT 136 X10e3 (140-420); RED BLOOD COUNT 3.67 X10e (3.90-5.60); RED CELL DISTRIBUTION WIDTH 15.3 % (11.0-15.5); WHITE BLOOD COUNT 11.7 X10e3 (4.0-10.5)
[2016-12-09 04:45] LABS: DIFF IND NO
[2016-12-09 05:24] LABS: ALBUMIN SERUM 1.6 g/dL (3.5-5.0); BILIRUBIN,TOTAL 0.8 mg/dL (0.2-2.0); BUN/CREATININE RATIO 6.78; CALCIUM SERUM 6.8 mg/dL (8.4-10.2); CREATININE SERUM 2.8 mg/dL (0.6-1.4); GLOM FILT RATE Estimated 23.3 mL/min (>60); PROTEIN TOTAL SERUM 5.3 g/dL (6.0-8.3)
[2016-12-09 06:18] LABS: POTASSIUM 5.5 mmol/L (3.5-5.1)
[2016-12-09 06:36] LABS: MAGNESIUM 2.2 mg/dL (1.6-3.0)
[2016-12-10 04:43] LABS: ARTERIAL BLOOD GAS CARBOXY HB 0.5 %sat (0.0-9.0); ARTERIAL BLOOD GAS HCO3 26.4 mmol/L; ARTERIAL BLOOD GAS MET HB 0.6 %sat (0.0-2.0); ARTERIAL BLOOD GAS pH 7.328 (7.350-7.450)
[2016-12-10 05:01] LABS: ARTERIAL BLOOD GAS ALLEN TEST NORMAL; ARTERIAL BLOOD GAS ART SITE RIGHT RADIAL; ARTERIAL BLOOD GAS DELIVERY VENT; ARTERIAL BLOOD GAS PCO2 50.4 mmHg (35.0-45.0); ARTERIAL BLOOD GAS VENT MODE AC; ARTERIAL DRAW? YES
[2016-12-10 05:05] LABS: HEMATOCRIT 32.1 % (38.0-50.0); HEMOGLOBIN 10.4 gm/dL (13.0-16.0); MEAN CELL VOLUME 88.8 FL (83-96); MEAN CORPUSCULAR HEMOGLOBIN 28.9 PG (28-34); MEAN CORPUSCULAR HGB CONC 32.5 g/dL (30-36); MEAN PLATELET VOLUME 9.7 FL (6.5-11.5); RED BLOOD COUNT 3.61 X10e (3.90-5.60); RED CELL DISTRIBUTION WIDTH 15.1 % (11.0-15.5); WHITE BLOOD COUNT 13.6 X10e3 (4.0-10.5)
[2016-12-10 06:47] LABS: ALBUMIN SERUM 1.1 g/dL (3.5-5.0); BILIRUBIN,TOTAL 0.7 mg/dL (0.2-2.0); BUN/CREATININE RATIO 10.93; CALCIUM SERUM 7.2 mg/dL (8.4-10.2); CREATININE SERUM 3.2 mg/dL (0.6-1.4); GLOM FILT RATE Estimated 19.8 mL/min (>60); PROTEIN TOTAL SERUM 4.2 g/dL (6.0-8.3)
[2016-12-10 12:05] LABS: ARTERIAL BLD GAS O2 SATURATION 94.1 % (90.0-100.0); ARTERIAL BLOOD GAS CARBOXY HB 0.6 %sat (0.0-9.0); ARTERIAL BLOOD GAS HCO3 24.4 mmol/L; ARTERIAL BLOOD GAS MET HB 0.8 %sat (0.0-2.0); ARTERIAL BLOOD GAS PCO2 42.2 mmHg (35.0-45.0)
[2016-12-10 12:06] LABS: ARTERIAL BLOOD GAS ALLEN TEST NORMAL; ARTERIAL BLOOD GAS ART SITE RIGHT RADIAL; ARTERIAL BLOOD GAS DELIVERY VENT; ARTERIAL BLOOD GAS PO2 78.3 mmHg (80.0-100); ARTERIAL BLOOD GAS VENT MODE CPAP; ARTERIAL DRAW? YES
[2016-12-10 17:11] LABS: ARTERIAL BLD GAS O2 SATURATION 88.3 % (90.0-100.0); ARTERIAL BLOOD GAS CARBOXY HB 0.9 %sat (0.0-9.0); ARTERIAL BLOOD GAS HCO3 23.5 mmol/L; ARTERIAL BLOOD GAS MET HB 0.4 %sat (0.0-2.0); ARTERIAL BLOOD GAS PCO2 42.4 mmHg (35.0-45.0); ARTERIAL BLOOD GAS pH 7.351 (7.350-7.450)
[2016-12-10 17:12] LABS: ARTERIAL BLOOD GAS ALLEN TEST NORMAL; ARTERIAL BLOOD GAS ART SITE LEFT RADIAL; ARTERIAL BLOOD GAS DELIVERY T-PIECE; ARTERIAL BLOOD GAS PO2 58.7 mmHg (80.0-100); ARTERIAL DRAW? YES
[2016-12-11 05:19] LABS: HEMATOCRIT 33.4 % (38.0-50.0); HEMOGLOBIN 10.8 gm/dL (13.0-16.0); MEAN CELL VOLUME 88.6 FL (83-96); MEAN CORPUSCULAR HEMOGLOBIN 28.6 PG (28-34); MEAN CORPUSCULAR HGB CONC 32.3 g/dL (30-36); MEAN PLATELET VOLUME 10.3 FL (6.5-11.5); RED BLOOD COUNT 3.77 X10e (3.90-5.60); RED CELL DISTRIBUTION WIDTH 15.2 % (11.0-15.5); WHITE BLOOD COUNT 19.4 X10e3 (4.0-10.5)
[2016-12-11 06:43] LABS: ALBUMIN SERUM 1.2 g/dL (3.5-5.0); BILIRUBIN,TOTAL 0.6 mg/dL (0.2-2.0); BUN/CREATININE RATIO 13.82; CALCIUM SERUM 7.7 mg/dL (8.4-10.2); CREATININE SERUM 3.4 mg/dL (0.6-1.4); GLOM FILT RATE Estimated 18.4 mL/min (>60); MAGNESIUM 2.3 mg/dL (1.6-3.0); PHOSPHOROUS 4.8 mg/dL (2.5-4.6); POTASSIUM 4.2 mmol/L (3.5-5.1); PROTEIN TOTAL SERUM 5.4 g/dL (6.0-8.3)
[2016-12-11 10:04] LABS: ARTERIAL BLD GAS O2 SATURATION 93.3 % (90.0-100.0); ARTERIAL BLOOD GAS CARBOXY HB 0.7 %sat (0.0-9.0); ARTERIAL BLOOD GAS HCO3 25.2 mmol/L; ARTERIAL BLOOD GAS PCO2 37.4 mmHg (35.0-45.0); ARTERIAL BLOOD GAS PO2 72.5 mmHg (80.0-100); ARTERIAL BLOOD GAS pH 7.437 (7.350-7.450); ARTERIAL DRAW? YES
[2016-12-11 10:05] LABS: ARTERIAL BLOOD GAS ART SITE LEFT RADIAL; ARTERIAL BLOOD GAS DELIVERY VENT; ARTERIAL BLOOD GAS VENT MODE CPAP
[2016-12-11 13:37] LABS: ARTERIAL BLD GAS O2 SATURATION 93.1 % (90.0-100.0); ARTERIAL BLOOD GAS CARBOXY HB 0.8 %sat (0.0-9.0); ARTERIAL BLOOD GAS HCO3 24.9 mmol/L; ARTERIAL BLOOD GAS MET HB 0.9 %sat (0.0-2.0); ARTERIAL BLOOD GAS PCO2 37.9 mmHg (35.0-45.0); ARTERIAL BLOOD GAS pH 7.425 (7.350-7.450)
[2016-12-11 13:47] LABS: ARTERIAL BLOOD GAS ART SITE LEFT RADIAL; ARTERIAL BLOOD GAS DELIVERY ATT; ARTERIAL BLOOD GAS PO2 73.3 mmHg (80.0-100); ARTERIAL DRAW? YES
[2016-12-12 05:05] LABS: ALBUMIN SERUM 1.6 g/dL (3.5-5.0); BILIRUBIN,TOTAL 0.8 mg/dL (0.2-2.0); BUN/CREATININE RATIO 12.63; CREATININE SERUM 3.8 mg/dL (0.6-1.4); GLOM FILT RATE Estimated 16.1 mL/min (>60); MAGNESIUM 2.4 mg/dL (1.6-3.0); PHOSPHOROUS 4.4 mg/dL (2.5-4.6); PROTEIN TOTAL SERUM 5.7 g/dL (6.0-8.3)
[2016-12-12 05:39] LABS: BASOPHIL% 0.2 % (0-2.5); EOSINOPHIL# 0.1 X10e3 (0-0.7); EOSINOPHIL% 0.4 % (0.0-7.0); HEMATOCRIT 32.3 % (38.0-50.0); HEMOGLOBIN 10.6 gm/dL (13.0-16.0); LYMPHOCYTE# 1.3 X10e3 (1.0-3.5); LYMPHOCYTE% 6.5 % (17.0-45.0); MEAN CELL VOLUME 88.1 FL (83-96); MEAN CORPUSCULAR HEMOGLOBIN 28.8 PG (28-34); MEAN CORPUSCULAR HGB CONC 32.7 g/dL (30-36); MEAN PLATELET VOLUME 10.2 FL (6.5-11.5); MONOCYTE# 0.8 X10e3 (0-1.0); MONOCYTE% 3.8 % (3.0-12.0); NEUTROPHIL# 17.8 X10e3 (1.5-7.1); NEUTROPHIL% 89.1 % (40-75); PLATELET COUNT 191 X10e3 (140-420); RED BLOOD COUNT 3.67 X10e (3.90-5.60); RED CELL DISTRIBUTION WIDTH 15.4 % (11.0-15.5)
[2016-12-12 05:44] LABS: DIFF IND YES
[2016-12-12 06:19] LABS: ANISOCYTOSIS SL; PLATELET ESTIMATE NORMAL (NORMAL)
[2016-12-12 12:12] LABS: ARTERIAL BLD GAS O2 SATURATION 93.7 % (90.0-100.0); ARTERIAL BLOOD GAS ALLEN TEST NORMAL; ARTERIAL BLOOD GAS ART SITE LEFT RADIAL; ARTERIAL BLOOD GAS CARBOXY HB 0.7 %sat (0.0-9.0); ARTERIAL BLOOD GAS DELIVERY OXYMIZER; ARTERIAL BLOOD GAS HCO3 27.3 mmol/L; ARTERIAL BLOOD GAS MET HB 0.3 %sat (0.0-2.0); ARTERIAL BLOOD GAS PCO2 49.7 mmHg (35.0-45.0); ARTERIAL BLOOD GAS PO2 79.3 mmHg (80.0-100); ARTERIAL BLOOD GAS pH 7.349 (7.350-7.450); ARTERIAL DRAW? YES
[2016-12-13 05:43] LABS: EOSINOPHIL# 0.1 X10e3 (0-0.7); EOSINOPHIL% 0.2 % (0.0-7.0); HEMATOCRIT 32.9 % (38.0-50.0); HEMOGLOBIN 10.4 gm/dL (13.0-16.0); LYMPHOCYTE# 1.3 X10e3 (1.0-3.5); LYMPHOCYTE% 4.6 % (17.0-45.0); MEAN CELL VOLUME 89.3 FL (83-96); MEAN CORPUSCULAR HEMOGLOBIN 28.2 PG (28-34); MEAN CORPUSCULAR HGB CONC 31.5 g/dL (30-36); MEAN PLATELET VOLUME 9.4 FL (6.5-11.5); MONOCYTE% 3.5 % (3.0-12.0); NEUTROPHIL# 25.5 X10e3 (1.5-7.1); NEUTROPHIL% 91.7 % (40-75); PLATELET COUNT 241 X10e3 (140-420); RED BLOOD COUNT 3.68 X10e (3.90-5.60); RED CELL DISTRIBUTION WIDTH 15.9 % (11.0-15.5); WHITE BLOOD COUNT 27.9 X10e3 (4.0-10.5)
[2016-12-13 05:44] LABS: DIFF IND NO
[2016-12-13 07:45] LABS: ALBUMIN SERUM 1.9 g/dL (3.5-5.0); BILIRUBIN,TOTAL 0.7 mg/dL (0.2-2.0); BUN/CREATININE RATIO 11.86; CALCIUM SERUM 8.2 mg/dL (8.4-10.2); CREATININE SERUM 4.3 mg/dL (0.6-1.4); GLOM FILT RATE Estimated 13.9 mL/min (>60); MAGNESIUM 2.5 mg/dL (1.6-3.0)
[2016-12-13 07:56] LABS: POTASSIUM 5.8 mmol/L (3.5-5.1)
[2016-12-13 17:42] LABS: BUN/CREATININE RATIO 11.35; CALCIUM SERUM 8.4 mg/dL (8.4-10.2); CREATININE SERUM 3.7 mg/dL (0.6-1.4); GLOM FILT RATE Estimated 16.6 mL/min (>60); MAGNESIUM 2.4 mg/dL (1.6-3.0)
[2016-12-14 05:30] LABS: BASOPHIL# 0.2 X10e3 (0-0.3); BASOPHIL% 0.7 % (0-2.5); EOSINOPHIL# 0.1 X10e3 (0-0.7); EOSINOPHIL% 0.6 % (0.0-7.0); HEMATOCRIT 33.1 % (38.0-50.0); HEMOGLOBIN 10.5 gm/dL (13.0-16.0); LYMPHOCYTE# 1.1 X10e3 (1.0-3.5); LYMPHOCYTE% 4.1 % (17.0-45.0); MEAN CELL VOLUME 90.6 FL (83-96); MEAN CORPUSCULAR HEMOGLOBIN 28.6 PG (28-34); MEAN CORPUSCULAR HGB CONC 31.5 g/dL (30-36); MEAN PLATELET VOLUME 9.1 FL (6.5-11.5); MONOCYTE# 1.1 X10e3 (0-1.0); MONOCYTE% 4.1 % (3.0-12.0); NEUTROPHIL# 23.3 X10e3 (1.5-7.1); NEUTROPHIL% 90.5 % (40-75); PLATELET COUNT 241 X10e3 (140-420); RED BLOOD COUNT 3.66 X10e (3.90-5.60); RED CELL DISTRIBUTION WIDTH 16.1 % (11.0-15.5); WHITE BLOOD COUNT 25.8 X10e3 (4.0-10.5)
[2016-12-14 05:42] LABS: DIFF IND NO
[2016-12-14 06:06] LABS: ALBUMIN SERUM 1.8 g/dL (3.5-5.0); BILIRUBIN,TOTAL 0.7 mg/dL (0.2-2.0); BUN/CREATININE RATIO 12.72; CALCIUM SERUM 8.4 mg/dL (8.4-10.2); CREATININE SERUM 4.4 mg/dL (0.6-1.4); GLOM FILT RATE Estimated 13.5 mL/min (>60); MAGNESIUM 2.5 mg/dL (1.6-3.0); PHOSPHOROUS 7.3 mg/dL (2.5-4.6); PROTEIN TOTAL SERUM 6.4 g/dL (6.0-8.3)
[2016-12-14 06:12] LABS: POTASSIUM 5.6 mmol/L (3.5-5.1)
[2016-12-15 04:13] LABS: ARTERIAL BLD GAS O2 SATURATION 98.1 % (90.0-100.0); ARTERIAL BLOOD GAS ALLEN TEST NORMAL; ARTERIAL BLOOD GAS ART SITE RIGHT RADIAL; ARTERIAL BLOOD GAS CARBOXY HB 0.8 %sat (0.0-9.0); ARTERIAL BLOOD GAS DELIVERY CPAP 13; ARTERIAL BLOOD GAS PCO2 67.3 mmHg (35.0-45.0); ARTERIAL BLOOD GAS pH 7.229 (7.350-7.450); ARTERIAL DRAW? YES
[2016-12-15 06:45] LABS: BASOPHIL# 0.1 X10e3 (0-0.3); BASOPHIL% 0.5 % (0-2.5); EOSINOPHIL# 0.1 X10e3 (0-0.7); EOSINOPHIL% 0.3 % (0.0-7.0); HEMATOCRIT 33.6 % (38.0-50.0); HEMOGLOBIN 10.8 gm/dL (13.0-16.0); LYMPHOCYTE# 1.3 X10e3 (1.0-3.5); LYMPHOCYTE% 5.3 % (17.0-45.0); MEAN CELL VOLUME 90.6 FL (83-96); MEAN CORPUSCULAR HEMOGLOBIN 29.1 PG (28-34); MEAN CORPUSCULAR HGB CONC 32.1 g/dL (30-36); MEAN PLATELET VOLUME 8.8 FL (6.5-11.5); MONOCYTE# 1.1 X10e3 (0-1.0); MONOCYTE% 4.9 % (3.0-12.0); NEUTROPHIL# 20.9 X10e3 (1.5-7.1); PLATELET COUNT 231 X10e3 (140-420); RED BLOOD COUNT 3.71 X10e (3.90-5.60); RED CELL DISTRIBUTION WIDTH 15.9 % (11.0-15.5); WHITE BLOOD COUNT 23.4 X10e3 (4.0-10.5)
[2016-12-15 06:57] LABS: BILIRUBIN, DIRECT 0.2 mg/dL (0.0-0.2); BILIRUBIN,TOTAL 0.7 mg/dL (0.2-2.0); BUN/CREATININE RATIO 12.32; CALCIUM SERUM 8.6 mg/dL (8.4-10.2); CREATININE SERUM 4.3 mg/dL (0.6-1.4); GLOM FILT RATE Estimated 13.9 mL/min (>60); POTASSIUM 5.1 mmol/L (3.5-5.1)
[2016-12-15 07:16] LABS: DIFF IND YES
[2016-12-15 09:30] LABS: NUCLEATED RED BLOOD CELL 1 /100 (0)
[2016-12-15 09:31] LABS: ANISOCYTOSIS SL; TOXIC GRANULATION SL
[2016-12-15 09:32] LABS: PLATELET ESTIMATE NORMAL (NORMAL)
[2016-12-15 14:13] LABS: ARTERIAL BLD GAS O2 SATURATION 97.3 % (90.0-100.0); ARTERIAL BLOOD GAS CARBOXY HB 0.6 %sat (0.0-9.0); ARTERIAL BLOOD GAS MET HB 0.9 %sat (0.0-2.0); ARTERIAL BLOOD GAS PCO2 50.1 mmHg (35.0-45.0); ARTERIAL BLOOD GAS pH 7.323 (7.350-7.450)
[2016-12-15 14:14] LABS: ARTERIAL BLOOD GAS ART SITE RIGHT RADIAL; ARTERIAL BLOOD GAS DELIVERY BIPAP; ARTERIAL DRAW? YES
[2016-12-16 05:16] LABS: HEMATOCRIT 33.6 % (38.0-50.0); HEMOGLOBIN 10.7 gm/dL (13.0-16.0); MEAN CELL VOLUME 89.6 FL (83-96); MEAN CORPUSCULAR HEMOGLOBIN 28.4 PG (28-34); MEAN CORPUSCULAR HGB CONC 31.7 g/dL (30-36); MEAN PLATELET VOLUME 8.9 FL (6.5-11.5); RED BLOOD COUNT 3.75 X10e (3.90-5.60); RED CELL DISTRIBUTION WIDTH 15.8 % (11.0-15.5); WHITE BLOOD COUNT 22.9 X10e3 (4.0-10.5)
[2016-12-16 05:32] LABS: BUN/CREATININE RATIO 13.8; CALCIUM SERUM 8.4 mg/dL (8.4-10.2); CREATININE SERUM 4.2 mg/dL (0.6-1.4); GLOM FILT RATE Estimated 14.3 mL/min (>60); POTASSIUM 4.5 mmol/L (3.5-5.1)
[2016-12-17 05:37] LABS: BASOPHIL# 0.1 X10e3 (0-0.3); BASOPHIL% 0.4 % (0-2.5); EOSINOPHIL% 0.2 % (0.0-7.0); HEMOGLOBIN 10.1 gm/dL (13.0-16.0); LYMPHOCYTE# 1.8 X10e3 (1.0-3.5); MEAN CORPUSCULAR HEMOGLOBIN 28.9 PG (28-34); MEAN CORPUSCULAR HGB CONC 33.6 g/dL (30-36); MEAN PLATELET VOLUME 9.7 FL (6.5-11.5); MONOCYTE# 1.4 X10e3 (0-1.0); MONOCYTE% 5.4 % (3.0-12.0); NEUTROPHIL# 22.5 X10e3 (1.5-7.1); PLATELET COUNT 329 X10e3 (140-420); RED BLOOD COUNT 3.49 X10e (3.90-5.60); RED CELL DISTRIBUTION WIDTH 17.1 % (11.0-15.5); WHITE BLOOD COUNT 25.9 X10e3 (4.0-10.5)
[2016-12-17 05:38] LABS: ARTERIAL BLD GAS O2 SATURATION 96.4 % (90.0-100.0); ARTERIAL BLOOD GAS CARBOXY HB 0.9 %sat (0.0-9.0); ARTERIAL BLOOD GAS HCO3 22.9 mmol/L; ARTERIAL BLOOD GAS MET HB 1.1 %sat (0.0-2.0); ARTERIAL BLOOD GAS pH 7.399 (7.350-7.450)
[2016-12-17 05:39] LABS: ARTERIAL BLOOD GAS ALLEN TEST NORMAL; ARTERIAL BLOOD GAS ART SITE LEFT RADIAL; ARTERIAL BLOOD GAS DELIVERY OXYMIZER; ARTERIAL DRAW? YES
[2016-12-17 05:54] LABS: MEAN CELL VOLUME 85.9 FL (83-96)
[2016-12-17 05:55] LABS: DIFF IND NO
[2016-12-17 07:04] LABS: BILIRUBIN,TOTAL 0.9 mg/dL (0.2-2.0); BUN/CREATININE RATIO 12.27; CALCIUM SERUM 8.3 mg/dL (8.4-10.2); CREATININE SERUM 4.4 mg/dL (0.6-1.4); GLOM FILT RATE Estimated 13.5 mL/min (>60); MAGNESIUM 2.2 mg/dL (1.6-3.0); POTASSIUM 4.4 mmol/L (3.5-5.1)
[2016-12-18 05:38] LABS: HEMATOCRIT 30.9 % (38.0-50.0); HEMOGLOBIN 10.1 gm/dL (13.0-16.0); MEAN CELL VOLUME 88.6 FL (83-96); MEAN CORPUSCULAR HEMOGLOBIN 28.9 PG (28-34); MEAN CORPUSCULAR HGB CONC 32.6 g/dL (30-36); MEAN PLATELET VOLUME 8.9 FL (6.5-11.5); RED BLOOD COUNT 3.49 X10e (3.90-5.60); RED CELL DISTRIBUTION WIDTH 15.3 % (11.0-15.5); WHITE BLOOD COUNT 20.4 X10e3 (4.0-10.5)
[2016-12-18 05:43] LABS: INR 1.1; PARTIAL THROMBOPLASTIN TIME 29.5 SECONDS (23.5-31.3); PROTHROMBIN TIME (PATIENT) 11.9 SECONDS (10.0-11.7)
[2016-12-18 06:10] LABS: ALBUMIN SERUM 1.9 g/dL (3.5-5.0); BUN/CREATININE RATIO 13.88; CALCIUM SERUM 8.3 mg/dL (8.4-10.2); CREATININE SERUM 5.4 mg/dL (0.6-1.4); GLOM FILT RATE Estimated 10.5 mL/min (>60); POTASSIUM 4.4 mmol/L (3.5-5.1)
[2016-12-19 05:44] LABS: BASOPHIL# 0.1 X10e3 (0-0.3); BASOPHIL% 0.6 % (0-2.5); EOSINOPHIL# 0.1 X10e3 (0-0.7); EOSINOPHIL% 0.4 % (0.0-7.0); HEMATOCRIT 31.7 % (38.0-50.0); HEMOGLOBIN 10.5 gm/dL (13.0-16.0); LYMPHOCYTE# 1.1 X10e3 (1.0-3.5); LYMPHOCYTE% 7.4 % (17.0-45.0); MEAN CELL VOLUME 88.1 FL (83-96); MEAN CORPUSCULAR HEMOGLOBIN 29.3 PG (28-34); MEAN CORPUSCULAR HGB CONC 33.2 g/dL (30-36); MEAN PLATELET VOLUME 9.2 FL (6.5-11.5); MONOCYTE# 1.1 X10e3 (0-1.0); NEUTROPHIL% 84.6 % (40-75); PLATELET COUNT 348 X10e3 (140-420); RED BLOOD COUNT 3.59 X10e (3.90-5.60); RED CELL DISTRIBUTION WIDTH 15.3 % (11.0-15.5); WHITE BLOOD COUNT 15.3 X10e3 (4.0-10.5)
[2016-12-19 05:50] LABS: DIFF IND YES
[2016-12-19 06:03] LABS: ALBUMIN SERUM 1.7 g/dL (3.5-5.0); BUN/CREATININE RATIO 12.7; CALCIUM SERUM 8.1 mg/dL (8.4-10.2); CREATININE SERUM 4.8 mg/dL (0.6-1.4); GLOM FILT RATE Estimated 12.1 mL/min (>60); MAGNESIUM 2.3 mg/dL (1.6-3.0); PHOSPHOROUS 7.6 mg/dL (2.5-4.6); POTASSIUM 4.8 mmol/L (3.5-5.1); PROTEIN TOTAL SERUM 6.7 g/dL (6.0-8.3)
[2016-12-19 06:21] LABS: ANISOCYTOSIS SL; PLATELET ESTIMATE NORMAL (NORMAL); POLYCHROMASIA SL
[2016-12-20 06:03] LABS: BASOPHIL# 0.1 X10e3 (0-0.3); BASOPHIL% 0.5 % (0-2.5); EOSINOPHIL# 0.1 X10e3 (0-0.7); EOSINOPHIL% 0.6 % (0.0-7.0); HEMATOCRIT 30.9 % (38.0-50.0); LYMPHOCYTE% 6.5 % (17.0-45.0); MEAN CELL VOLUME 88.4 FL (83-96); MEAN CORPUSCULAR HEMOGLOBIN 28.6 PG (28-34); MEAN CORPUSCULAR HGB CONC 32.4 g/dL (30-36); MEAN PLATELET VOLUME 9.2 FL (6.5-11.5); MONOCYTE# 1.3 X10e3 (0-1.0); MONOCYTE% 8.2 % (3.0-12.0); NEUTROPHIL# 12.9 X10e3 (1.5-7.1); NEUTROPHIL% 84.2 % (40-75); PLATELET COUNT 403 X10e3 (140-420); RED CELL DISTRIBUTION WIDTH 15.5 % (11.0-15.5); WHITE BLOOD COUNT 15.3 X10e3 (4.0-10.5)
[2016-12-20 06:05] LABS: DIFF IND NO
[2016-12-20 06:22] LABS: BUN/CREATININE RATIO 13.05; CALCIUM SERUM 8.3 mg/dL (8.4-10.2); CREATININE SERUM 5.9 mg/dL (0.6-1.4); GLOM FILT RATE Estimated 9.5 mL/min (>60); POTASSIUM 4.9 mmol/L (3.5-5.1)
[2016-12-20 18:28] LABS: HA AB IGM (HEPPAN) Nonreactive (()); HB CORE AB IGM (HEPPAN) Nonreactive (Nonreactive); HB S AG (HEPPAN) Nonreactive (Nonreactive); HEP C AB (HEPPAN) Nonreactive (Nonreactive); HEP C AB SIGNAL TO CUTOFF 0.21 ratio (<1.00)
== END 2016-12-20 18:58 | DRG 853 ==
LOC: CED 00:32 → CEDOF 05:30 → CICCU3 05:30 → CEDOF 05:34 → CED 05:34 → CICCU3 06:35 → CEDOF 06:35 → CICCU3 08:26
PROVIDERS: Anesthesiology; Emergency Medicine; Internal Medicine; Internal Medicine Nephrology; Internal Medicine Pulmonary Disease; Nurse Practitioner Family; Orthopaedic Surgery
PROC: 0KNT0ZZ Release Left Lower Leg Muscle, Open Approach (ICD-10-PCS; 2016-12-06)
PROC: 5A1955Z Respiratory Ventilation, Greater than 96 Consecutive Hours (ICD-10-PCS; 2016-12-06)
PROC: 0JNM0ZZ Release Left Upper Leg Subcutaneous Tissue and Fascia, Open Approach (ICD-10-PCS; 2016-12-06)
PROC: 0KNT0ZZ Release Left Lower Leg Muscle, Open Approach (ICD-10-PCS; 2016-12-06)
PROC: 0KNT0ZZ Release Left Lower Leg Muscle, Open Approach (ICD-10-PCS; 2016-12-06)
PROC: 0KNT0ZZ Release Left Lower Leg Muscle, Open Approach (ICD-10-PCS; 2016-12-06)
PROC: 5A1D60Z (ICD-10-PCS; 2016-12-06)
PROC: 30233J1 Transfusion of Nonautologous Serum Albumin into Peripheral Vein, Percutaneous Approach (ICD-10-PCS; 2016-12-06)
PROC: 0BH17EZ Insertion of Endotracheal Airway into Trachea, Via Natural or Artificial Opening (ICD-10-PCS; principal; 2016-12-06 10:00)
PROC: 0DH67UZ Insertion of Feeding Device into Stomach, Via Natural or Artificial Opening (ICD-10-PCS; 2016-12-09)
PROC: 05H433Z Insertion of Infusion Device into Left Innominate Vein, Percutaneous Approach (ICD-10-PCS; 2016-12-16)
PROC: B54NZZA Ultrasonography of Left Upper Extremity Veins, Guidance (ICD-10-PCS; 2016-12-16)
PROC: 05HM33Z Insertion of Infusion Device into Right Internal Jugular Vein, Percutaneous Approach (ICD-10-PCS; 2016-12-18)
PROC: B513YZA Fluoroscopy of Right Jugular Veins using Other Contrast, Guidance (ICD-10-PCS; 2016-12-18)
PROC: 05PYX3Z Removal of Infusion Device from Upper Vein, External Approach (ICD-10-PCS; 2016-12-18)
DX: A41.9 Sepsis, unspecified organism (principal); R65.21 Severe sepsis with septic shock; N17.0 Acute kidney failure with tubular necrosis; J95.821 Acute postprocedural respiratory failure; E87.2 Acidosis; E43 Unspecified severe protein-calorie malnutrition; I47.2 Ventricular tachycardia; L03.116 Cellulitis of left lower limb; N18.3 Chronic kidney disease, stage 3 (moderate); T79.A22A Traumatic compartment syndrome of left lower extremity, initial encounter; M62.82 Rhabdomyolysis; E66.2 Morbid (severe) obesity with alveolar hypoventilation; Z68.44 Body mass index [BMI] 60.0-69.9, adult; F33.2 Major depressive disorder, recurrent severe without psychotic features; J98.11 Atelectasis; W18.11XA Fall from or off toilet without subsequent striking against object, initial encounter; I12.9 Hypertensive chronic kidney disease with stage 1 through stage 4 chronic kidney disease, or unspecified chronic kidney disease; E78.5 Hyperlipidemia, unspecified; E11.65 Type 2 diabetes mellitus with hyperglycemia; E11.21 Type 2 diabetes mellitus with diabetic nephropathy; J44.9 Chronic obstructive pulmonary disease, unspecified; Z87.891 Personal history of nicotine dependence; Z98.84 Bariatric surgery status; Z88.0 Allergy status to penicillin; Z79.82 Long term (current) use of aspirin; Z79.4 Long term (current) use of insulin; I48.0 Paroxysmal atrial fibrillation; E87.5 Hyperkalemia; R80.9 Proteinuria, unspecified; N40.0 Benign prostatic hyperplasia without lower urinary tract symptoms; Y83.9 Surgical procedure, unspecified as the cause of abnormal reaction of the patient, or of later complication, without mention of misadventure at the time of the procedure
CPT/HCPCS: 36430; 36600; 71010; 72100; 73552; 73590; 73610; 73630; 74000; 76000; 76001; 76770; 77001; 80048; 80053; 80074; 80076; 81003; 82248; 82308; 82550; 82553; 82570; 82803; 82947; 83036; 83605; 83735; 83880; 84100; 84156; 84443; 84484; 85025; 85027; 85379; 85610; 85730; 87040; 87070; 87086; 87205; 87340; 92526; 92610; 93005; 93970; 94002; 94003; 94640; 94660; 94664; 94760; 94761; 96361; 96372; 96374; 96375; 96376; 97110; 97163; 97167; 97530; 99291; C9113; G8978-GP; G8979-GP; G8987-GO; G8988-GO; G8996-GN; G8997-GN; G8998-GN; J0330; J0360; J0610; J1170; J1644; J1650; J1815; J2020; J2185; J2250; J2930; J2997; J3010; J3370; J3475; J7060; P9047; Q4081